=== PATIENT | female | born 1985 | race Caucasian/White ===

== ENCOUNTER 2016-09-05 10:44 | Emergency (ER) | payer BC, OTHER ==
--- NOTE | 2016-09-05 11:09 | ERNOTE ---
Chest Pain/Cardiac HPI Chief Complaint: Chest Pain Time Seen by Provider: 09/05/16 10:57 Source: patient Exam Limitations: no limitations Immunizations: IMMUNIZATION HX History of Influenza Vaccine Yes Allergies/Adverse Reactions: Allergies cefaclor [From Ceclor] Allergy (Verified 06/16/16 09:42) Sulfa (Sulfonamide Antibiotics) Allergy (Verified 06/16/16 09:42) Home Medications: HOME MEDICATIONS Metoprolol Tartrate [Lopressor] 50 mg PO HS 01/28/16 [Last Taken 09/05/16] Multivitamin [One Daily Essential] 1 each PO DAILY 01/28/16 [Last Taken 09/05/16 ] Aspirin [Aspirin Enteric Coated] 81 mg PO DAILY 06/16/16 [Last Taken 09/05/16] Ranitidine HCl [Zantac] 150 mg PO DAILY 09/05/16 [Last Taken 09/05/16] Narrative: pt had sharp chest pain onset last night that lasted about 2 minutes and was exacerbated by movement. She has achy pain mid to upper sternum today that is mild. 27w2d high risk due to mildly dilated aorta Timing: intermittent Severity/Quality: mild Location: central Chest Pain Radiation: no radiation Activities at Onset: activity Modifying Factors - Improves: Present: nothing Modifying Factors - Worsens: Present: position, movement Review of Systems - Review of Systems Constitutional: Absent: recent illness EYE: Present: no symptoms reported ENT: Present: no symptoms reported Respiratory: Absent: shortness of breath Cardiology: Present: See HPI Gastrointestinal/Abdominal: Present: no symptoms reported Genitourinary: Present: discharge, other - constant lower abdominal pressure without contractile changes Musculoskeletal: Present: muscle stiffness - chest Skin: Present: no symptoms reported Neurological: Present: no symptoms reported Endocrine: Present: no symptoms reported Hematologic/Lymphatic: Present: no symptoms reported Psych: Present: no symptoms reported - Patient's Past Medical History Patient History - Medical: UTI'S Patient History - Cardiac/Respiratory: Hypertension Patient History - Cancer: No Hx of Cancer Patient History - Surgical Procedures: D & C Patient History - Other: None - Family History Mother Family History - Medical: Family History - Cardiac/Respiratory: COPD Father Family History - Medical: Renal Failure Family History - Cardiac/Respiratory: Aneurysm, Hypertension Brother Family History - Medical: Family History - Cardiac/Respiratory: Aneurysm - Social History Living Situations: home Psych History: No pertinent hx Smoking Status: Never smoker Have you smoked in the past 12 months: No Alcohol Use: none Drug Use: none - Immunizations History of Influenza Vaccine: Yes Physical Exam - Physical Exam General Appearance: Present: wd/wn, alert, no apparent distress Ears, Nose, Throat: Present: normal ENT inspection Neck: Present: normal inspection, nontender Respiratory: Present: no respiratory distress, normal breath sounds, chest tenderness - right costo-sternal junction of ribs 2&3 Cardiovascular/Chest: Present: regular rate, rhythm, no murmur Extremity Exam: Present: normal inspection, normal range of motion Neurological Exam: Present: alert, oriented, normal mood/affect, no motor/ sensory deficits Skin Exam: Present: normal color, warm/dry Lymphatic Exam: Present: no adenopathy ED Progress - Results and Orders Patient's Lab Results:: I have reviewed the patient's lab results. Results and Orders: Laboratory Tests 09/05/16 09/05/16 09/05/16 11:10 11:10 11:10 WBC 8.6 Hgb 11.7 L Hct 34.6 L Plt Count 153 PT 9.9 INR (Anticoag Therapy) 0.95 PTT ([place]) 26.6 Sodium 139 Potassium 3.9 Chloride 104 Carbon Dioxide 25.2 Anion Gap 13.7 BUN 7 D Creatinine 0.59 Est GFR (Non-Af Amer) 128 D Random Glucose 91 Calcium 9.0 Total Bilirubin 0.2 AST 14 ALT 12 L Alkaline Phosphatase 57 Troponin I Less than 0.017 Total Protein 6.7 Albumin 2.5 L - Vital Signs Patient's Vital Signs:: I have reviewed the patient's vital signs. Vital Signs: Vital Signs 09/05/16 09/05/16 10:50 10:57 Temperature 37.1 C Pulse Rate 92 83 Respiratory 16 12 Rate Blood Pressure 150/102 126/71 O2 Sat by Pulse 100 100 Oximetry - EKG EKG: NSR EKG read: Interp. by me - Progress/Reassessment Chief Complaint: Chest Pain Progress Note-Subjective: 09/05/16 14:52 OB nurse was called to ED. NST was done and was reactive. amnioswab was done and found no evidence of membrane rupture. Departure - Departure Clinical Impression: Costal chondritis Disposition: Home Follow Up Needed Condition: Good Instructions: Costochondritis, [id number] Referrals: Seth Dominguez DO [Primary Care Provider] -
[2016-09-05 11:14] LABS: Hematocrit 34.6 % (37.0-47.0); Hemoglobin 11.7 gm/dL (12.5-16.0); Mean Cell Volume 91.3 fl (78-100); Mean Corpuscular Hemoglobin 30.9 pg (27-31); Mean Corpuscular Hgb Conc 33.8 g/dl (32-36); Mean Platelet Volume 10.2 fl (6.0-9.5); Neutrophil # 6.3 K/mm3 (1.3-6.0); Neutrophil % 73.1 % (42-75.0); Platelet Count 153 K/mm3 (150-450); Red Blood Count 3.79 M/mm3 (4.2-5.4); Red Cell Distribution Width 13.1 % (11.5-14.0); White Blood Count 8.6 K/mm3 (4.0-10.5)
--- OUTSIDE RECORDS SUMMARY | 2016-09-05 11:14 | XMS REPORT | Continuity of Care Document ---
:1985 Author Organization [facility] ([facility]) Address [address] [place] [address] Phone [phone] Care Team Providers Name Role Phone Tammy Blake Primary Care Provider [phone] Source Comments This disclosure is being made pursuant to the Care Everywhere program, applicable federal and state laws, and may not contain all informaitonavailable regarding this patient.[facility] ([facility]) Active Allergies and Adverse Reactions Allergen Noted Date Severity Reactions Comments Cefaclor Angioedema Metformin 10/30/2014 Stomach Pain,Diarrhea Naproxen Sodium 05/25/2016 Rash Pollen 03/22/2012 OTHER hayfever Sulfadoxine Angioedema Current Medications Prescription Sig. Disp. Refills Start End Date Status Date SUPPLY blood Use as directed. 1 Each 0 Active pressure monitor Indications: 3 (SELF-TAKING BLOOD HYPERTENSION PRESSURE) metoPROLol succinate Take 1 tablet (50 90 tablet 3 Active 50 mg XL tablet mg total) by 6 mouth daily. ondansetron 4 mg Take 1 tablet (4 20 tablet 1 Active tablet mg total) by 6 mouth every 8 hours as needed for Nausea/Vomiting. promethazine 12.5 mg Take 1 tablet 20 tablet 1 Active tablet (12.5 mg total) 6 by mouth every 6 hours as needed. Take 1 tablet by Active multivitamin with mouth daily. minerals 28-0.8 mg per tablet BABY ASPIRIN PO Take 1 tablet by Active mouth daily. pseudoephedrine 30 Take 30 mg by Active mg tablet mouth every 4 hours as needed for Congestion. amoxicillin 875 mg Take 875 mg by 08/17/19 Discontinued tablet mouth 2 times 17 daily. Active Problems Problem Noted Date Supervision of high risk in second trimester 06/22/2016 Familial aortic aneurysm 10/30/2014 HTN (hypertension), benign 04/11/2013 Obesity (BMI 35.0-39.9 without comorbidity) 07/21/2011 Rubella equivocal 07/13/2011 Overview: Received MMR 01/2012 Aortic insufficiency; dilated aortic root of 3.1cm in 04/2011, 2.5cm 2011 (normal) in 08/2011, 3.3cm in 12/2011. Seen by Cards on 12/28 and continued on metoprolol. Overview: Early epidural to reduce marked changes in BP secondary to pain. Assisted 2nd stage with vacuum/forceps Pt's father had ruptured aortic aneurysm (survived) tested negative for Marfan's and TAA syndrome. Pt's brother from ruptured thoracic aortic aneurysm at age 18. Repeat echo on 12/28 with aortic root dilation of 3.3cm, <4cm so ok for vaginal delivery per [facility]. Also okay per diet counselor Lilliam Banerjee, but recommended avoiding prolonged/protracted pushing. echo normal at 22 wks, no further f/u needed. Currently Estimated Date of Delivery Comments Yes 12/03/2016 Based on Last Menstrual Period Resolved Problems Problem Noted Date Resolved Date Missed 12/17/2015 05/26/2016 Chronic hypertension in 09/13/2011 12/17/2015 Overview: Growth ultrasound 02/01/12: indicated EFW at 66%. 6-10 mm CEASAR (less than 5th percentile) UA S/D ratio=2.0, heart rate 140 beats per minute. No gross anomalies were noted. Her last growth ul trasound four weeks ago had a normal CEASAR. Continue Metoprolol 25 mg BID Q4 week growth US, next scheduled at 38+5 weeks NST 2/week, one locally and one at [facility] Baseline 24hr protein was 980mg on 06/29/11, baseline labs WNL - see media IOL scheduled at 39+0 on 02/04/12 at 2000, will need to reassess if pt will need cervical ripening , dating by local 7 wk ultrasound not c/w LMP. 07/13/2011 12/17/2015 Overview: Needs MMR PP A positive, antibody screen negative, Rubella equivocal, HIV negative, HBsAg negative, RPR negative, urine culture negative, Pap negative in 08/06, gonorrhea/chlamydia negative, GTT normal. GBS positive. Regarding cefaclor allergy, patient reports taking amoxicillin frequently without adverse reaction. Polycystic kidney disease, autosomal dominant in family. 07/07/20112011 Overview: Renal sono 07/21/11 WNL 24 hr protein 980 mg/24 hr Need to address follow-up of baseline proteinuria with possible renal consult/renal biopsy post- Lumbago 01/27/2008 07/13/2011 Most Recent Encounters Date Type Specialty Providers Description 09/05/2016 Telephone Gynecology Tereso, Chief Comp: Patient Mary Awan MD Concern 08/18/2016 Telephone Pediatric Penny Sanchez, Chief Comp: manager banking Follow-up 08/17/2016 Office Visit Maternal Keyla Sánchez I Dx: Chronic Medicine hypertension Clinic, Hrob affecting Return (Primary Dx) 08/17/2016 Hospital Encounter Pediatric Keith, Dx: Aortic valve Cardiology Pancho Means MD insufficiency, unspecified etiology 08/17/2016 Hospital Encounter Pediatric Keith, Dx: Aortic valve Cardiology Pancho Means MD insufficiency, unspecified etiology 08/03/2016 Telephone Gynecology Tereso, Chief Comp: Other Mary Awan MD 07/21/2016 Telephone Obstetrics Kena Coles, Chief Comp: Discuss Test Results 07/20/2016 Office Visit Maternal Keyla Sánchez I Dx: Supervision of Medicine high-risk Clinic, Hrob (Primary Dx) Return 07/20/2016 Hospital Encounter Obstetrics Brunilda Busch Dx: Supervision of DO high risk in first trimester 07/20/2016 Office Visit Maternal Clinic, Hrob Subj: Appointment Medicine Return Canceled 07/20/2016 Hospital Encounter Obstetrics Subj: Appointment Canceled 07/20/2016 Erroneous Obstetrics Tereso, Chief Comp: Error Encounter Mary Awan MD 07/18/2016 Telephone Maternal Tereso Chief Comp: Other Medicine Mary Awan MD 06/28/2016 Telephone Gynecology Kayla Moss Chief Comp: Medication Question 06/23/2016 Telephone Maternal Kayla Moss, Chief Comp: Discuss Medicine Test Results 06/22/2016 Office Visit Pathology Cris, Dx: Balaji Kelly MD hypertension Lab Services, Pfp affecting 06/22/2016 Office Visit Maternal Nuangchamnong, Dx: Supervision of Medicine MD Leticia high risk Clinic, Hrob in second trimester Return (Primary Dx) 06/16/2016 Telephone Gynecology Kayla Moss, Chief Comp: Rachana CHOW 06/16/2016 Telephone Maternal Kayla Moss, Chief Comp: Rachana Siddiqui MD 06/13/2016 Telephone Maternal Kayla Moss, Chief Comp: Urinary Medicine MD Tract Infection Immunizations Name Dates Previously Given Next Due MMR 02/07/2012 Tdap 03/22/2012 Social History Tobacco Use Types Packs/Day Years Used Date Never Smoker Smokeless Tobacco: Never Used Alcohol Use Drinks/Week oz/Week Comments Yes 2 Glasses of wine 1.0 last drink sept prior to Last Filed Vital Signs Vital Sign Reading Time Taken Blood Pressure 125/69 08/17/2016 3:01 PM [employer] Pulse 101 08/17/2016 3:01 PM [employer]ST[employer] Temperature 37.3 C (99.1 F) 08/17/2016 3:01 PM [employer] INST[employer]ER Respiratory Rate 16 12/18/2015 11:07 AM CDT Height 1.537 m (5' 0.5") 07/20/2016 4:04 PM [employer] INST[employer]ER Weight 96.5 kg (212 lb 11.9 oz) 08/17/2016 3:01 PM [employer] INST[employer]ER Body Mass Index 40.85 08/17/2016 3:01 PM [employer] INST[employer]ER Oxygen Saturation 99% 12/18/2015 11:07 AM CDT Plan of Care Date Type Specialty Providers Description 09/06/2016 Appointment Obstetrics Subj: Upcoming Appt Reminder 09/06/2016 Appointment Maternal Clinic, Hrob Return Dx: Supervision of Medicine normal in second trimester (Primary Dx) 10/21/2016 Appointment Heart and Vascular [place] Banerjee, Subj: Appointment MD Scheduled [address] [place] [address] [phone] (Fax) 10/21/2016 Appointment Heart [facility] [place] Banerjee, Subj: Appointment Scheduled [address] [place] [address] [phone] (Fax) Health Maintenance Due Date Last Done Comments Hepatitis B Vaccine (1 of 3 - Primary Series) 1985 Cervical Cancer Screening 2004 Lipid Disorder Screening 2004 Influenza Vaccine: Seasonal (#1) 01/25/2016 Td Vaccine 03/22/2022 03/22/2012 MMR Vaccine Completed 02/07/2012 Tdap Vaccine Completed 03/22/2012 Results from Last 3 Months ECHO PEDS - ECHOCARDIOGRAM (08/17/2016 1:46 PM) Component Value Range Interpretation Summary Normal cardiac anatomy Normal Doppler assessment of flow Normal biventricular function No effusion. Atria and Atrial Septum Flap of foramen ovale enters the left atrium. Normal left atrial size Normal right atrial size Right to left shunt seen at atrial level. Rhythm 1:1 AV conduction with a heart rate of 161 bpm. Situs, Cardiac Position and Pulmonary Situs solitus. and Systemic Veins One pulmonary veins seen connecting to the left atrium. Levocardia No obstruction to IVC or SVC flow seen draining to the right atrium. Great Vessels and Ventricular-Arterial Normal left ventricular outflow tract. Connections The aortic valve is not seen well in cross section, however it appears thin and mobile. Normal pulmonary valve, and main pulmonary artery. Concordant ventriculoarterial connections. Ascending aortic velocity normal No aortic valve regurgitation. Normal flow velocity in the main pulmonary artery. Atrioventricular Valves and AV Valve The mitral valve is normal. Function The tricuspid valve is normal. Concordant atrioventricular connections. No mitral valve regurgitation. No tricuspid valve regurgitation. Ventricles and Interventricular Septum The right ventricle is normal in size and systolic function. No ventricular septal defect seen in views obtained. The left ventricle is normal in size and systolic function. Aortic Arch/Paten Ductus Normal aortic and ductal arches. Ateriosus/Coronary Arteries Descending aortic velocity normal Attributes Fetus at 24w4d weeks gestation. Cordero . Expected date of delivery 12/03/2016. Fetus in cephalic lie. heart/chest ratio=0.5. Cardiac [place]=42 degrees . Normal flow velocity and pattern in umbilical artery and vein. No hydrops or pericardial effusion seen. Primary ICD-9 Code Suspected Abnormality Ruled Out (Z03.73) 24 weeks gestation of (Z3A.24) Procedures 2D Echo performed as part of this study. PW and CW Doppler peformed as part of this study. Doppler assessment of Color Flow mapping performed as part of this study. Quality Comments Patient's name and date were confirmed. Maternal obesity limiting exam. RVDd 0.53 cm IVSd 0.36 cm LVIDd 0.67 cm LVIDs 0.30 cm LVPWd 0.33 cm IVS/LVPW 1.1 FS 55.6 % LV mass(C)d 2.4 grams AoV sarah diam 0.39 cm PV sarah diam 0.42 cm Reason For Study Evaluate fetus for CHD Client Partner Erin Hernandez Interpreting Physician Pancho Parker MD electronically signed on 2016-08-17 16:05:40.85 URINE CULTURE, ROUTINE AEROBIC (07/20/2016 4:48 PM)Only the most recent of2 resultswithin the time period is included. Component Value Range Quantitative Culture Multiple Organisms present suggesting improperly collected specimen(A) Specimen Culture - Urine, Midstream clean catch Narrative Identification performed by MALDI-TOF mass spectrometry (MS).The performance characteristics of MALDI-TOF MS were determined by the [facility].It has not been cleared orApproved by the FDA. The FDA has determined that such clearance or approval is not necessary.This test is for clinical purposes. It should not be regarded as investigational or for research.The laboratory is certified under the Clinical Laboratory Improvement Amendments of 1988 (CLIA) as qualified to perform high complexity clinical laboratory testing. OB ULTRASOUND (07/20/2016 3:26 PM) Narrative Obstetric Ultrasound Report Detailed Survey Referral from: Dr. Saurabh Chiu , [facility] [place] [address] OB Clinic [facility] PATIENT INFORMATION: Name: JUSTYNA GAMING#: [id number] Age:30 y/oExam Date: 07/20/2016 :1985 Visit #: 4 LMP:02/27/2016Location: Obstetri c Unit # Fetuses: 1 INDICATION:Aortic insufficiency and dilated aortic arch. cHTN. Negative screening. Check growth and anatomy DATING: Assigned GA GA by LMPGA by US (LMP)KAPIL 20 4/7 wks 19 6/7 wks 20 4/7 wks6 BIOMETRY: BPD: 43.9 mm19 2/7 wksHC:168.9 mm 19 4/7 wks(5%) (16%) Femur: 34.3 mm20 6/7 wksAC:151.7 mm 20 3/7 wks(34%) (52%) EFW: 378 gms0 lbs 13 oz (%) Lat Ventricles: 5.3 mm Cisterna Magna: 5.1 mm Nuchal Fold:3.0 mm Nasal Bone: Present-5.2 m Heart Rate: 156 bpmFL/AC:0.23 HL/BPD: 0.72 FL/BPD: 0.78 Humerus:32.0 mm20 10/30 (53%) PRESENTATION/CORD/PLACENTA/FLUID/CERVIX: Presentation: Cephalic Umbilical Cord: 3 Vessel Cord.Normal insertion into the placenta. Placenta: Anterior.There Is No Evidence Of Placenta Previa. Amniotic Fluid: Subjective AF Volume: Normal. Cervix: Overall Length:42mm, Normal ANATOMICAL SURVEY: Normal ------ Lateral Ventricles Cerebellum Cisterna Magna Nuchal Fold Profile Cervical Spine Thoracic Spine Lumbar Spine Sacrum Four Chamber View RVOT LVOT Aortic ArchCardiac [place] Cardiac Position Heart Rate Ductal ArchCardiac Rhythm Ventral Wall Stomach Kidney - LeftKidney - Right Bladder Forearm - Left Forearm - RightLower Leg - Left Lower Leg - RightFoot - Left Foot - Right Suboptimal Palate Nose Lips IVC SVC Diaphragm Hand - LeftHand - Right Abnormal -------- None identified TARGETED CARDIAC: Ductal Arch: Normal IVC: Suboptimal SVC: Suboptimal Cardiac Rhythm:Normal Pericardial Effusion: Absent DRIVER ENGINEER FINDINGS: Ovaries:Left:Normal Right: Normal EFW Summary Table Exam DateFetus #EFW Percentile ------ - 378 % AMNIOTIC FLUID VOLUME: NORMALSubjective AF Volume: Normal. CERVIX: Visualized Overall Length:42 mm Cervical Evaluation: Yes Cervical Approach: Transabdominal COMMENTS: I attest to having personally viewed the images and my comments and impression are as follows: The exam was limited by maternal obesity in . IUP consistent with given KAPIL. Within the limits of ultrasound, no structural anomalies were seen. The nuchal, nasal and humerus measure within the normal limits. The anatomy survey was incomplete due to position and maternal abdominal thickness. Please schedule a follow up visit in 2-4 weeks to complete the anatomy checklist.An order will be required for a follow-up ultrasound. Thank you for allowing our unit to contribute to your patient's care. Gabi Pruett.O. Dr. Brunilda Busch MD ([id number]) Client Partner: Ana Lilia Yepez RDMS, RVT Procedure Note Larry, Incoming Imaging Results - MonJul 25, 2016 4:10 PM [employer] INST[employer]ER Obstetric Ultrasound Report Detailed Survey Referral from: Dr. Saurabh Chiu DO [facility] Department of Obstetrics &[place] [address] [address] [place], [place] OB Clinic IVF/Endocrine PATIENT INFORMATION: Name: JUSTYNA CASTAÑEDA MR#: [id number] Age: 30 y/o Exam Date: 07/20/2016 : 1985 Visit #: 4 LMP: 02/27/2016 Location: Obstetric Unit # Fetuses: 1 INDICATION: Aortic insufficiency and dilated aortic arch. cHTN. Negative screening. Check growth and anatomy DATING: Assigned GA GA by LMP GA by US (LMP) KAPIL 20 09/30 wks 19 11/30 wks 20 7 wks 12/03/16 BIOMETRY: BPD: 43.9 mm 19 2/7 wks HC: 168.9 mm 19 7 wks (5%) (16%) Femur: 34.3 mm 20 7 wks AC: 151.7 mm 20 7 wks(34%) (52%) EFW: 378 gms 0 lbs 13 oz (%) Lat Ventricles: 5.3 mm Cisterna Magna: 5.1 mm Nuchal Fold: 3.0 mm Nasal Bone: Present-5.2m Heart Rate: 156 bpm FL/AC: 0.23 HL/BPD: 0.72 FL/BPD: 0.78 Humerus: 32.0 mm 20 7 (53%) PRESENTATION/CORD/PLACENTA/FLUID/CERVIX: Presentation: Cephalic Umbilical Cord: 3 Vessel Cord. Normal insertion into the placenta. Placenta: Anterior. There Is No Evidence Of Placenta Previa. Amniotic Fluid: Subjective AF Volume: Normal. Cervix: Overall Length: 42mm, Normal ANATOMICAL SURVEY: Normal ------ Lateral Ventricles Cerebellum Cisterna Magna Nuchal Fold Profile Cervical Spine Thoracic Spine Lumbar Spine Sacrum Four Chamber View RVOT LVOT Aortic Arch Cardiac [place] Cardiac Position Heart Rate Ductal Arch Cardiac Rhythm Ventral Wall Stomach Kidney - Left Kidney - Right Bladder Forearm - Left Forearm - Right Lower Leg - Left Lower Leg - Right Foot - Left Foot - Right Suboptimal Palate Nose Lips IVC SVC Diaphragm Hand - Left Hand - Right Abnormal -------- None identified TARGETED CARDIAC: Ductal Arch: Normal IVC: Suboptimal SVC: Suboptimal Cardiac Rhythm: Normal Pericardial Effusion: Absent DRIVER ENGINEER FINDINGS: Ovaries: Left: Normal Right: Normal EFW Summary Table Exam Date Fetus # EFW Percentile --------- ------- ---- 07/20/16 1 378 % AMNIOTIC FLUID VOLUME: NORMAL Subjective AF Volume: Normal. CERVIX: Visualized Overall Length: 42 mm Cervical Evaluation: Yes Cervical Approach: Transabdominal COMMENTS: I attest to having personally viewed the images and my comments and impression are as follows: The exam was limited by maternal obesity in . IUP consistent with given KAPIL. Within the limits of ultrasound, no structural anomalies were seen. The nuchal, nasal and humerus measure within the normal limits. The anatomy survey was incomplete due to position and maternal abdominal thickness. Please schedule a follow up visit in 2-4 weeks to complete the anatomy checklist. An order will be required for a follow-up ultrasound. Thank you for allowing our unit to contribute to your patient's care. Brunilda Busch D.O. Dr. Brunilda Busch MD ([id number]) Client Partner: Ana Lilia Yepez, RDMS, RVT GLUCOSE, 1 HOUR, GLUCOSE TOLERANCE TEST (06/22/2016 2:18 PM) Component Value Range GTT 1 Hour 123Comment: mg/dL Reference range: positive result for evaluation of gestational diabetes mellitus depends on protocol used. 1 Hr Glucose tolerance test using 50 g of glucose Fasting plasma glucose concentration > 95 mg/dL One-hour plasma glucose concentration > 140 mg/dL 3 Hr Glucose tolerance test using 100 g of glucose Fasting plasma glucose concentration > 95 mg/dL One-hour plasma glucose concentration > 180 mg/dL Two-hour plasma glucose concentration > 155 mg/dL Three-hour plasma glucose concentration > 140 mg/dL Reference: ACOG practice bulletin number 137, January 2013, Gestational Diabetes Mellitus Specimen Blood CREATININE (06/22/2016 2:18 PM) Component Value Range Creatinine 0.8Comment: 0.5-1.0 mg/dL Creatinine switched to enzymatic method on 11/02/2010.GFR equation switched to IDMS-traceable MDRD equation on 11/02/2010. Calculated GFR values are not valid in clinical settings where serum creatinine is changing. Calculated GFR 85 >60 mL/min/1.73 m2 Specimen Blood INTEGRATED SECOND SAMPLE SCREEN - [place] MATERNAL SCREENING (06/22/2016 2:18 PM) Component Value Range Egg Provider's Race WHITE Number of Fetuses 1 Insulin Dependent Diabetic Egg No Provider Egg Provider's Family History of NTD No Client Partner tonie garcia Ultrasound Date 2016-05-25 [place] Rump Length 57 mm Nuchal Translucency 1.42 mm Maternal Age at Delivery 30.2 kya First Trimester Lab Number [id number] First Trimester Collection Date 2016-05-25 First Trimester Received Date 2016-05-26 First Trimester Maternal Weight 206.2 lb First Trimester Gestational Age 85 d Second Trimester Lab Number [id number] Second Trimester Collection Date 2016-06-22 Second Trimester Received Date 2016-06-23 Second Trimester Maternal Weight 205.1 lb Second Trimester Gestational Age 113 d NT Multiple of Median 1.02 PAPPA Multiple of Median 1.08 AFP Multiple of Median 0.92 <2.2 UE3 Multiple of Median 0.8 SHRUTI Multiple of Median 0.65 HCG Multiple of Median 0.89 Down Syndrome Risk 1:49381 <=1:150 Age Related Down Syndrome Risk 1:750 Trisomy 18 Risk 1:73723 <=1:100 NTD Interpretation Screen Negative for NTD NTD Recommended Action No further action Down Syndrome Interpretation Screen Negative for Downs Down Syndrome Recommended Action No further action Trisomy 18 Interpretation Screen Negative for Trisomy 18 Trisomy 18 Recommended Action No further actionComment: Screening will detect approximately 85% of fetuses with Down syndrome, 80% of fetuses with Trisomy 18 and 85% of fetuses with open neural tube defects in a cordero .This test does not reliably detect other chromosomal abnormalities.NT measurement greater than or equal to 3.0 mm increases the risk for aneuploidy, heart defects and other congenital abnormalities. Maternal screening has some level of inherent false negative and false positive results and is not a substitute for diagnostic testing.This report is based on the clinical information provided.Missing or incorrect data will result in an inaccurate interpretation.Please review and call [phone] with questions.This test uses a kit designated by the channel process supervisor as, "for research use, not for clinical use."The performance characteristics of this test were validated by the [facility].The FDA has not approved or cleared this test.The results are not intended to be used as the sole means for clinical diagnosis or patient management decisions. Integrated Test Technology is under license from [employer]. Specimen Serum MICROSCOPIC URINALYSIS (06/22/2016 1:53 PM) Component Value Range White Blood Cells, Urine 12(H)Comment: 0-5 /HPF Sample analyzed >2 hours after collection under unknown storage conditions. Optimal results are obtained on samples analyzed within 1-2 hours of collection unless refrigerated. Interpret results accordingly. Red Blood Cells, Urine 6(H) 0-2 /HPF Bacteria, Urine Rare(A) /HPF Squamous Epithelial Cells, Urine 387(H) <=10 /LPF Hyaline Cast, Urine 2 <=10 /LPF Mucous-Urine Many(A) None, Rare Specimen Urine URINALYSIS WITH REFLEX CULTURE (06/22/2016 1:53 PM) Component Value Range Color, Urine Yellow Straw, Pale Yellow, Yellow, Clear, None Clarity, Urine Cloudy(A) Clear pH, Urine 6.0Comment: <9.0 Sample analyzed >2 hours after collection under unknown storage conditions. Optimal results are obtained on samples analyzed within 1-2 hours of collection unless refrigerated. Interpret results accordingly. Spec [place], Urine 1.030(H) 1.000-1.030 Glucose, Urine Negative Negative Blood, Urine Negative Negative Ketones, Urine Trace(A) Negative Protein, Urine 2+(A) Negative Urobilinogen, Urine Normal Normal Bilirubin, Urine Negative Negative Leukocyte Esterase, Urine 2+(A) Negative Nitrite, Urine Negative Negative Specimen Urine URINALYSIS WITH REFLEXED CULTURE AND MICROSCOPIC EXAM (06/22/2016 1:53 PM) Specimen Culture - Urine, Midstream clean catch Narrative The following orders were created for panel order URINALYSIS WITH REFLEXED CULTURE AND MICROSCOPIC EXAM. Procedure Abnormality Status --------- ------ URINALYSIS WITH REFLEX C...[[id number]]AbnormalFinal result MICROSCOPIC URINALYSIS[[id number]] URINE CULTURE, REFLEXED[[id number]]Abnormal Final result Please view results for these tests on the individual orders. URINE CULTURE, REFLEXED (06/22/2016 1:53 PM) Component Value Range Quantitative Culture Multiple Organisms present suggesting improperly collected specimen(A) Specimen Culture - Urine, Midstream clean catch Narrative Identification performed by MALDI-TOF mass spectrometry (MS).The performance characteristics of MALDI-TOF MS were determined by the [facility].It has not been cleared orApproved by the FDA. The FDA has determined that such clearance or approval is not necessary.This test is for clinical purposes. It should not be regarded as investigational or for research.The laboratory is certified under the Clinical Laboratory Improvement Amendments of 1988 (CLIA) as qualified to perform high complexity clinical laboratory testing. PROTEIN-URINE 24 HR (06/21/2016 6:30 AM) Component Value Range Total Volume, Urine 1181 mL Hours Collected 24.0 Hours Total Protein, Urine, Measured 40 mg/dL Total Protein, Urine, Total 0.47(H) 0.10-0.20 g/24Hr Total Protein-Urine, mg/TV 472.40 mg/TV Urine Protein/Creatinine Ratio 0.40(H) <=0.20 Specimen Urine
--- OUTSIDE RECORDS SUMMARY | 2016-09-05 11:14 | XMS REPORT | CCD ---
:1985 Author Name ANA MARIE Address [address] Unavailable [place], [place] [id number] Care Team Providers Name Role Phone MAIRA WISDOM Attending Physician Unavailable Vital Signs Unknown or Not Available. Allergies Unknown or Not Available. Procedures Unknown or Not Available. History of Immunizations Unknown or Not Available. Problems Unknown or Not Available. Results Unknown or Not Available. Active Medications Unknown or Not Available. Medications Administered During Visit Unknown or Not Available. Encounters Encounter Diagnosis Diagnosis Code Start Date Encounter for supervision of normal , unspecified, [id number] 11/25/2015 first trimester Social History Smoking Status Code Start Date End Date Never smoker [id number] Patient Decision Aids Unknown or Not Available. Discharge Instructions You were admitted to [facility] on 11/25/2015 12:47 with a principal diagnosis of Encounter for supervision of normal , unspecified, first trimeste You were discharged from [facility] on 11/25/2015 12:47 Should you have any questions prior to discharge, please contact a member of your healthcare team. If you have left the hospital and have any questions, please contact your primary care physician. Chief Complaint and Reason For Visit Unknown or Not Available. Function Status Unknown or Not Available. Plan of Care Unknown or Not Available. Referral/Transition of Care Unknown or Not Available.
--- OUTSIDE RECORDS SUMMARY | 2016-09-05 11:14 | XMS REPORT | CCD ---
:1985 Author Name ANA MARIE Address [address] [facility] Unavailable [place], [place] [id number] Care Team Providers Name Role Phone MAIRA WISDOM Attending Physician Unavailable Vital Signs Unknown or Not Available. Allergies Unknown or Not Available. Procedures Procedure Code Procedure Type Date HIV 06/[id number] 12/11/2015 History of Immunizations Unknown or Not Available. Problems Unknown or Not Available. Results . PANEL - Collect Date/Time: 12/11/2015 14:55 Test Name Code Test Result Test Units Test Ref Range WBC 6690-2 10.8 K/uL L=3.2 H=10.0 RBC 789-8 4.70 M/uL L=4.00 H=5.20 HEMOGLOBIN 718-7 14.4 g/dL L=12.1 H=15.6 HEMATOCRIT 42.7 % L=35.0 H=47.0 MCV 90.9 fL L=81.0 H=101 MCH 30.6 PG L=26.0 H=38.0 MCHC 33.7 G/DL L=31.0 H=37.0 RDW-SD 40.9 FL L=37.0 H=54.0 RDW-CV 12.6 % L=11.0 H=16.0 PLATELETS 777-3 197 K/UL L=140 H=380 MPV 11.2 FL L=9.0 H=13.0 %GRAN 60.5 % L=0.0 H=75.0 %LYMPH 28.5 % L=0.0 H=50.0 %MONO 9.1 % L=0.0 H=14.0 %EOS 1.6 % L=0.0 H=6.0 %BASO 0.3 % L=0.0 H=1.0 #GRAN 6.51 K/UL L=1.80 H=7.80 #LYMPH 3.06 K/UL L=0.30 H=4.00 #MONO 0.98 K/UL L=0.00 H=0.70 #EOS 0.17 K/UL L=0.00 H=0.40 #BASO 0.03 K/UL L=0.00 H=0.10 MANUAL DIFF NOT INDICATED N/A ABO/RH A POSITIVE N/A ANTIBODY SCRN NEGATIVE N/A NORMAL: NEGATIVE VAGINITIS PANEL - Collect Date/Time: 12/11/2015 15:23 Test Name Code Test Result Test Units Test Ref Range TRICHOMONAS 47896-9 NEGATIVE N/A NORMAL:NEGATIVE NORI NEGATIVE N/A NORMAL:NEGATIVE GARDNERELLA NEGATIVE N/A NORMAL:NEGATIVE .OB ANTIBODY RUBELLA - Collect Date/Time: 12/11/2015 14:55 Test Name Code Test Result Test Units Test Ref Range RUBELLA IMMUNE STATUS 25.5 IU/mL .OB HEPATITIS B SURFACE ANTIGEN - Collect Date/Time: 12/11/2015 14:55 Test Name Code Test Result Test Units Test Ref Range HEPBSAG INDEX Below 0.10 N/A Below 1.00 HEPATITIS B SURFACEANTIGEN NON REACTIVE N/A HIV 1/2 AB - Collect Date/Time: 12/11/2015 14:55 Test Name Code Test Result Test Units Test Ref Range HIV 1/2 AB/AG W/REFLEX NON REACTIVE N/A Active Medications Unknown or Not Available. Medications Administered During Visit Unknown or Not Available. Encounters Encounter Diagnosis Diagnosis Code Start Date Patient currently [id number] 12/11/2015 Social History Smoking Status Code Start Date End Date Never smoker [id number] Patient Decision Aids Unknown or Not Available. Discharge Instructions You were admitted to [facility] on 12/11/2015 14:48 with a principal diagnosis of state, incidental You had the following tests done:.OB ANTIBODY RUBELLA.OB HEPATITIS B SURFACE ANTIGEN. PANELHIV 1/2 ABVAGINITIS PANEL You were discharged from [facility] on 12/11/2015 14:48 Should you have any questions prior to discharge, please contact a member of your healthcare team. If you have left the hospital and have any questions, please contact your primary care physician. Chief Complaint and Reason For Visit Unknown or Not Available. Function Status Unknown or Not Available. Plan of Care Diagnostic Test Pending Plan of Care Pending Diagnostic Test .OB RPR, [LOINC: 81592-8], 12/11/2015 Referral/Transition of Care Unknown or Not Available.
[2016-09-05 11:26] LABS: Prothrombin Time (Patient) 9.9 Seconds (9.4-11.4)
[2016-09-05 11:28] LABS: INR 0.95 INR (0.90-1.10); Partial Thrombolplastin Time 26.6 Seconds (24-32)
[2016-09-05 11:32] LABS: ALT 12 U/L (19-67); AST 14 U/L (0-48); Albumin * 2.5 gm/dl (3.4-5.0); Alkaline Phosphatase * 57 U/L (50-170); Anion Gap 13.7 mmol/L (6.8-13.8); BUN/Creatinine Ratio 11.9 (9.0-21.6); Bilirubin, Total 0.2 mg/dL (0.0-1.1); Blood Urea Nitrogen 7 mg/dL (3-23); Ca. Corrected For Albumin 9.9 mg/dL (8.4-10.2); Carbon Dioxide 25.2 mmol/L (24-32.6); Chloride 104 mmol/L (97-106); Glucose * 91 mg/dL (70-110); Potassium 3.9 mmol/L (3.4-4.6); Sodium 139 mmol/L (132-142); Total Protein 6.7 gm/dL (6.2-8.2); Troponin I Less than 0.017 ng/ml (0.00-0.10)
[2016-09-05 12:06] VITALS: BP 126/69
== END 2016-09-05 12:11 | disposition home or self-care (01) ==
LOC: ER 10:44
DX: M94.0 Chondrocostal junction syndrome [Tietze] (principal); Z3A.27 27 weeks gestation of pregnancy; O09.892 Supervision of other high risk pregnancies, second trimester; I10 Essential (primary) hypertension

== ENCOUNTER 2016-11-22 19:18 | Observation (INO) | payer BC, OTHER ==
[2016-11-22] MEDS ORDERED: RINGERS SOLUTION,LACTATED 1,000 ML IV PRN (19:24)
[2016-11-22 19:39] LABS: Hematocrit 36.2 % (37.0-47.0); Hemoglobin 12.4 gm/dL (12.5-16.0); Mean Cell Volume 91.4 fl (78-100); Mean Corpuscular Hemoglobin 31.3 pg (27-31); Mean Corpuscular Hgb Conc 34.3 g/dl (32-36); Mean Platelet Volume 11.3 fl (6.0-9.5); Neutrophil # 7.1 K/mm3 (1.3-6.0); Platelet Count 146 K/mm3 (150-450); Red Blood Count 3.96 M/mm3 (4.2-5.4); Red Cell Distribution Width 13.5 % (11.5-14.0); White Blood Count 11.3 K/mm3 (4.0-10.5)
[2016-11-22 19:52] LABS: Albumin * 2.3 gm/dl (3.4-5.0); Anion Gap 13.5 mmol/L (6.8-13.8); BUN/Creatinine Ratio 12.2 (9.0-21.6); Bilirubin, Total 0.2 mg/dL (0.0-1.1); Ca. Corrected For Albumin 9.7 mg/dL (8.4-10.2); Calcium * 8.7 mg/dL (7.9-10.9); Carbon Dioxide 23.5 mmol/L (24-32.6); Total Protein 6.4 gm/dL (6.2-8.2)
[2016-11-22 19:54] LABS: Urine Bilirubin Negative (NEGATIVE); Urine Blood 50 /ul (NEGATIVE); Urine Ketone Negative (NEGATIVE); Urine Nitrite Negative (NEGATIVE); Urine Protein 100 mg/dL (NEGATIVE); Urine Specific Gravity 1.025 SP.GR. (1.005-1.010); Urine Urobilinogen Normal (NORMAL)
[2016-11-22 20:18] LABS: Cocaine Ur Negative (NEGATIVE); Urine Barbiturate Negative (NEGATIVE); Urine Benzodiazepines Negative (NEGATIVE); Urine Opiates Negative (NEGATIVE); Urine PCP Negative (NEGATIVE); Urine THC Negative (NEGATIVE)
[2016-11-22 20:19] LABS: Urine Appearance Slightly Cloudy; Urine Color Yellow
[2016-11-22 20:20] LABS: Urine Bacteria 1+; Urine RBC 0-5 /hpf (0-5); Urine WBC TRACE /hpf (0-5)
[2016-11-22 20:20] LABS: INR 0.91 INR (0.90-1.10); Partial Thrombolplastin Time 27.2 Seconds (24-32); Prothrombin Time (Patient) 9.5 Seconds (9.4-11.4)
--- NOTE | 2016-11-22 20:30 | HP ---
Chief Complaint - Chief Complaint Date of Service: 11/22/16 Chief Complaint: chest hurt, headache and contraction History of Present Illness: 31 yo, CF, at 38.3 weeks, EDC 12/03/16, with history of aotic insufficiency and dilated aotic root, chronic hypertension, and morbid obesity ( BMI 43), and care at [facility]. Presents to our hospital with complaints of chest pain, headache, hand tingling and contractions. Patient states she is jovany all day, and had lost her mucus plug with mucous vaginal spotting. She states it is the chest pain and hand tingling that made her come here. She is on metoprolol 50 mg daily, baby aspirin and vitamin. Upon initial evaluations, her blood pressure was found to be very low, 85/43, 69/34 and 73/ 39. Her pulse was in the 92 and 93 with O2 sat at 97-99% room air. heart rate was reassuring at 120 s with accels. She was jovany q2min. Cervix was closed, 50% and -2. Spoke with Dr. Bermudez at [facility] and was told she is scheduled for induction next week at 39 week. Her echo showed EF of 59% on . She denies vaginal bleeding or leaking fluid. - Narrative Narrative: Family history of aortic aneurisym (Father and brother). mother with COPD - Patient's Past Medical History Patient History - Medical: UTI'S Patient History - Cardiac/Respiratory: Hypertension Patient History - Cancer: No Hx of Cancer Patient History - Surgical Procedures: D & C Patient History - Other: None - Family History Mother Family History - Medical: Family History - Cardiac/Respiratory: COPD Father Family History - Medical: Renal Failure Family History - Cardiac/Respiratory: Aneurysm, Hypertension Brother Family History - Medical: Family History - Cardiac/Respiratory: Aneurysm - Social History Living Situations: home Psych History: No pertinent hx Alcohol Use: none Drug Use: none - Immunizations History of Influenza Vaccine: Yes Review Of Systems (GEN) - Review of Systems EENTM: Present: Other - headache Cardiac: Present: Chest Pain Genitourinary: Present: Other - mucos discharge with spotting. Misc: All systems neg except as marked Immunizations: IMMUNIZATION HX History of Influenza Vaccine Yes Allergies/Adverse Reactions: Allergies Allergy/AdvReac Type Severity Reaction Status Date / Time cefaclor [From Ceclor] Allergy Unknown Verified 11/22/16 20:57 Sulfa (Sulfonamide Allergy Unknown Verified 11/22/16 20:57 Antibiotics) Home Medications: HOME MEDICATIONS Metoprolol Tartrate [Lopressor] 50 mg PO HS 01/28/16 [Last Taken 09/05/16] Multivitamin [One Daily Essential] 1 each PO DAILY 01/28/16 [Last Taken 09/05/16 ] Aspirin [Aspirin Enteric Coated] 81 mg PO DAILY 06/16/16 [Last Taken 09/05/16] Ranitidine HCl [Zantac] 150 mg PO DAILY 09/05/16 [Last Taken 09/05/16] Exam - Exam Vital Signs: Vital Signs - Last Taken Temp 37.1 C 09/05/16 10:50 Pulse Resp BP 126/69 09/05/16 12:05 Pulse Ox Constitutional: Present: Alert, Oriented x3, Cooperative Respiratory: Present: lungs clear, normal breath sounds, no respiratory distress , No rales, No wheezing Cardiovascular/Chest: Present: normal peripheral pulses, regular rate, rhythm, systolic murmur Abdomen: Present: soft, nontender, other - gravid /Rectal: Present: Other - cervix: closed, 50% and -2 Extremity: Present: normal range of motion, no calf tenderness, lower extremity edema - 1+ bilaterally Skin Exam: Present: normal color, warm/dry, no cyanosis Diagnostic Studies: bed side u/s: cephalic, no signs of abruption. Assessment/Plan - Narrative Narrative: A: 31 yo, CF, at 38.3 week with chest pain, headache, contractions and low BP in the 70-80/35-45s, aortic insufficiency, dilated aortic root and family history of aortic aneurysm. no abruption on u/s. normal O2 sat at 97-98% room air with reassuring status. patient is currently stable after IV fluid bolus per Internal medicine DR. Egan. Cervix closed. Plan:will transfer to [facility] by air lift due to concerns of cardiopulmonary insufficiency. Spoke with high risk MFM Dr. Ileana Patterson who accepted the transfer. Dileep oLpez MD
--- NOTE | 2016-11-22 20:36 | OR ---
Anesthesia Pre Procedure Eval Date of Service: 11/22/16 Pre Procedure Evaluation: Last Vital Signs Temp 37.1 C 09/05/16 10:50 Pulse Resp BP 126/69 09/05/16 12:05 Pulse Ox Anesthesia Pre Procedure Evaluation Heart Rate:78 Blood Pressure:85/65 Termperature:36.7 Respiratory Rate:20 SaO2:99 DATE: 11/22/2016 TIME: 2024 INDICATIONS: Active labor, labor pain PAST MEDICAL HISTORY: Patient has had a history of aortic dilatation and aortic valve hypertrophy, she was scheduled to be induced in [place] on Monday. She presented to the OB department with contractions at 2 minutes apart and although some of her symptoms resemble that of preeclampsia (blurred vision, tingling fingers) her blood pressure was rather low. This initial assessment was for my own familiarity in case she stays long enough to deliver here. In the meantime Dr. Lopez will investigate the etiology of her low blood pressure and hopefully be able to transfer her to [place]. If she is unable to transfer the original plan was to put early epidural M and assist with delivery in effort to reduce morbidity of decreased cardiac output with pushing at the end stages of labor. As of now with an apparent low blood pressure I am not inclined to administer an epidural unless we discover an etiology for low blood pressure. EXAM: Heart S1-S2 regular with systolic murmur; lungs clear bilaterally ASSESSMENT OF MEDICAL STATUS: The patient's history includes aortic dilatation and valve hypertrophy and has been treated with metoprolol, she is morbidly obese but takes no other medication in no other apparent health issues. Etiology of her hypotension is yet to be determined. PLANNED PROCEDURE: Procedure deferred at this time as I await determination of patient's obstetrical treatment. Home Medications: HOME MEDICATIONS Metoprolol Tartrate [Lopressor] 50 mg PO HS 01/28/16 [Last Taken 09/05/16] Multivitamin [One Daily Essential] 1 each PO DAILY 01/28/16 [Last Taken 09/05/16 ] Aspirin [Aspirin Enteric Coated] 81 mg PO DAILY 06/16/16 [Last Taken 09/05/16] Ranitidine HCl [Zantac] 150 mg PO DAILY 09/05/16 [Last Taken 09/05/16]
[2016-11-22] MEDS ORDERED: NORMAL SALINE 1,000 ML IV PRN (20:44)
[2016-11-22] MEDS ORDERED: ONDANSETRON HCL/PF 2 MG/ML VIAL IV ONE (21:06)
--- NOTE | 2016-11-22 22:41 | DS ---
(1) Hypotension Problem: Acute (2) Aortic insufficiency Problem: Acute (3) Morbid obesity with BMI of 40.0-44.9, adult Problem: Acute (4) High-risk in third trimester Problem: Acute (5) Chest pain Problem: Acute Qualifiers: Chest pain type: unspecified Qualified Code(s): R07.9 - Chest pain, unspecified Description of Stay: 31 yo, CF, at 38.3 weeks with high risk , aortic insufficiency , chronic high blood pressure and morbid obesity, presented with chest pain, headache, hand tingling, contraction and mucus bloody discharge and found to have low blood pressures in 60-80s /35-45s. Her pulse was in the 80-90s with O2 sat in the 97-98% on room air. status was reassuring. Internal medicine was consulted and IV hydration was given. Initial assessment ruled out labor and abruption. Blood pressure improved after iv hydration and stabalized to 135/60. Patient then was transfered to [facility] via air lift due to concerns of cardiopulmonary insufficiency from aortic insufficiency or aortic dissection. Procedures Performed: none Discharge Disposition: [facility] Disposition: [facility] Condition: Fair Discharge Activity: Other - bed rest Discharge Diet: NPO Referrals: Seth Dominguez DO [Primary Care Provider] - Consultation Done:: with internal medicine and MFM at [facility] Complete Home Medications List: Complete Home Medication List: Metoprolol Tartrate [Lopressor] 50 mg PO HS 01/28/16 Multivitamin [One Daily Essential] 1 each PO DAILY 01/28/16 Aspirin [Aspirin Enteric Coated] 81 mg PO DAILY 06/16/16 Ranitidine HCl [Zantac] 150 mg PO DAILY 09/05/16
--- NOTE | 2016-11-23 10:50 | CONS ---
- Reason for consultation (1) Chest pain Date of Service: 11/22/16 (2) Hypotension Date of Service: 11/22/16 HPI - General Date of Service: 11/22/16 Narrative: Patient presented to the ED with complaints of chest pain, headache and paresthesias. She was immediately transferred to the [facility] [place] where she was evaluated by Dr. Lopez. Patient was found to be hypotensive and a stat consult was placed and the patient's case was discussed with Dr. Lopez. Of note, the patient has a history of aortic root dilation. Source: patient, family, RN/MD Exam Limitations: no limitations - History of Present Illness Allergies/Adverse Reactions: Allergies cefaclor [From Ceclor] Allergy (Unknown, Verified 11/22/16 20:57) Sulfa (Sulfonamide Antibiotics) Allergy (Unknown, Verified 11/22/16 20:57) Home Medications: Home Medications Medication Instructions Recorded Last Taken Metoprolol Tartrate [Lopressor] 50 mg PO HS 01/28/16 11/21/16 20:00 Multivitamin [One Daily Essential] 1 each PO DAILY 01/28/16 11/22/16 Aspirin [Aspirin Enteric Coated] 81 mg PO DAILY 06/16/16 11/22/16 Ranitidine HCl [Zantac] 150 mg PO DAILY 09/05/16 09/05/16 - Patient's Past Medical History Patient History - Medical: UTI'S Patient History - Cardiac/Respiratory: Hypertension Patient History - Cancer: No Hx of Cancer Patient History - Surgical Procedures: D & C Patient History - Other: None - Family History Mother Family History - Medical: Family History - Cardiac/Respiratory: COPD Father Family History - Medical: Renal Failure Family History - Cardiac/Respiratory: Aneurysm, Hypertension Brother Family History - Medical: Family History - Cardiac/Respiratory: Aneurysm - Social History Living Situations: home Psych History: No pertinent hx Alcohol Use: none Drug Use: none - Immunizations History of Influenza Vaccine: Yes Procedures ASPIRAT CURET-POST DELIV (01/17/11) Review of Systems - Review of Systems Generalized/Overall Review: Absent: Fever Respiratory: Absent: Shortness of Breath Cardiac: Present: Chest Pain Neurological: Present: Parasthesia, Tingling Misc: All systems neg except as marked Physical Examination - Exam Vital Signs: Vital Signs - Last Taken Temp 37.1 C 09/05/16 10:50 Pulse Resp BP 126/69 09/05/16 12:05 Pulse Ox Constitutional: Present: Alert, Oriented x3, Cooperative, Well developed, Well nourished, Mild distress, Young ENT Exam: Present: moist mucous membranes Respiratory: Present: lungs clear, normal breath sounds, no respiratory distress , no accessory muscle use Cardiovascular/Chest: Present: regular rate, rhythm, no chest tenderness, diastolic murmur, edema - Trace to 1+ edema in bilateral lower extremities Extremity: Present: non-tender, normal inspection, lower extremity edema Skin Exam: Present: normal color - Trace to 1+ pitting edema in bilateral lower extremities, warm/dry, no cyanosis. Absent: mottled, skin rash Neurologic: Present: no motor/sensory deficits, alert, normal mood/affect, oriented x 3 Appearance: Present: appropriate appearance, appropriate insight, neat, no memory impairment Eye contact: Present: cooperative, good eye contact, normal speech Thoughts: Present: normal thought pattern, no apparent hallucination - Results and Findings: Lab/Microbiology results last 24 hrs: Abnormal/Pending Laboratory Last 24 HRS 11/22/16 11/22/16 11/22/16 20:10 19:38 19:38 WBC 11.3 H RBC 3.96 L Hgb 12.4 L Hct 36.2 L MCH 31.3 H Plt Count 146 L MPV 11.3 H Immature Gran % (Auto) 0.60 H Immature Gran # (Auto) 0.07 H Monocytes % 10.0 H Neutrophils # 7.1 H Monocytes # 1.1 H Fibrinogen 435 H Carbon Dioxide 23.5 L ALT 12 L Albumin 2.3 L Urine Protein Urine Blood Ur Leukocyte Esterase Urine Bacteria 11/22/16 19:25 WBC RBC Hgb Hct MCH Plt Count MPV Immature Gran % (Auto) Immature Gran # (Auto) Monocytes % Neutrophils # Monocytes # Fibrinogen Carbon Dioxide ALT Albumin Urine Protein 100 H Urine Blood 50 H Ur Leukocyte Esterase 25 H Urine Bacteria 1+ H - Assessments/Findings (1) Chest pain Diagnosis(s): Given the patient's history of dilation of her aortic root in combination with her presenting symptoms and hypotension, I'm extremely concerned that the patient is having an aortic dissection. I discussed the need for further evaluation with both Dr. Lopez, the patient and her . We could get a CTA of the chest here, however, if there is something critical that is found, we do not have the means to treat her here. Given my extremely high suspicion for an aortic dissection, I recommended that the patient be transferred STAT to the [facility] for further evaluation and management. Also, if we did a CTA this would mean that the patient and her baby would be exposed to radiation. To avoid radiation exposure, the patient could have a MARII completed to evaluate for aortic dissection. Unfortunately, we do not do TEEs here at our facility and thus another reason for the patient to be transferred to the [facility]. Problem: Acute Qualifiers: Chest pain type: unspecified Qualified Code(s): R07.9 - Chest pain, unspecified (2) Hypotension Diagnosis(s): Increase IV access and place at least one 18-gauge IV. Stop IV fluids which are running at 125 mL/h and instead run NS wide open. Check manual blood pressures. Patient treated aggressively with IV fluids with good response and improvement in her blood pressure. Patient alert and oriented and mentating without difficulties and able to protect her own airway. I I discussed with Dr. Lopez that I feel like the patient is stable enough and should be transferred to the [facility] STAT via helicopter for further evaluation and management. Problem: Acute
--- OUTSIDE RECORDS SUMMARY | 2016-11-23 11:07 | XMS REPORT | Continuity of Care Document ---
:1985 Author Organization [facility] ([facility]) Address [address] [place] [address] Phone [phone] Care Team Providers Name Role Phone Tammy Blake Primary Care Provider [phone] Source Comments This disclosure is being made pursuant to the Care Everywhere program, applicable federal and state laws, and may not contain all informaitonavailable regarding this patient.[facility] ([facility]) Active Allergies and Adverse Reactions Allergen Noted Date Severity Reactions Comments Cefaclor Angioedema Metformin 10/30/2014 Stomach Pain,Diarrhea Naproxen Sodium 05/25/2016 Rash Pollen 03/22/2012 OTHER hayfever Sulfadoxine Angioedema Current Medications Prescription Sig. Disp. Refills Start Date End Date Status SUPPLY blood Use as directed. 1 Each 0 04/29/2013 Suspended pressure monitor Indications: (SELF-TAKING BLOOD HYPERTENSION PRESSURE) ondansetron 4 mg Take 1 tablet (4 20 tablet 1 06/22/2016 Suspended tablet mg total) by mouth every 8 hours as needed for Nausea/Vomiting. promethazine 12.5 Take 1 tablet 20 tablet 1 06/22/2016 Suspended mg tablet (12.5 mg total) by mouth every 6 hours as needed. Take 1 tablet by Suspended multivitamin with mouth daily. minerals 28-0.8 mg per tablet BABY ASPIRIN PO Take 81 mg by Suspended mouth daily. acetaminophen 500 Take 1,000 mg by Suspended mg tablet mouth every 8 hours. For headaches metoPROLol Take 1 tablet (50 90 tablet 3 10/21/2016 Suspended succinate 50 mg XL mg total) by mouth tablet daily. Active Problems Problem Noted Date Dissection of thoracic aorta 11/23/2016 Type 1 dissection of ascending aorta 11/23/2016 Morbid obesity 11/23/2016 Supervision of high risk in third trimester 06/22/2016 Familial aortic aneurysm 10/30/2014 HTN (hypertension), benign 04/11/2013 BMI 40.0-44.9, adult 07/21/2011 Rubella equivocal 07/13/2011 Overview: Received MMR 01/2012 Aortic root dilatation 07/07/2011 Resolved Problems Problem Noted Date Resolved Date [...] NST 2/week, one locally and one at [facility] Baseline 24hr protein was 980mg on 06/29/11, [...] Recent Encounters Date Type Specialty Providers Description 11/23/2016 Office Visit Maternal Clinic, Hrob Subj: Appointment Medicine Return Canceled 11/23/2016 Office Visit Gynecology Subj: Appointment Canceled 11/23/2016 Hospital Encounter Heart and Vascular Subj: Appointment Scheduled 11/23/2016 Anesthesia Event General Surgery Jose Osborne, DO 11/23/2016 Surgery General Surgery Joselin Rolon, Ascending aortic DO aneurysm repair 11/23/2016 Hospital Encounter Heart and Vascular Chief Comp: Patient Reported Reason For Visit 11/22/2016 Hospital Encounter General Surgery Liliane Recinos Dx: Aortic root MD Charly dilatation (Primary [place] bates Dx) MD Gonzales Corbin Sharon B, DO 11/22/2016 Telephone General Care Leonie Serna, Chief Comp: Patient Inpatient - Adult RN Concern 11/16/2016 Office Visit Pathology Ivelisse Parikh, Dx: Chronic hypertension Lab Services, Pfp affecting 11/16/2016 Hospital Encounter Obstetrics Brunilda Busch, Dx: Chronic DO hypertension affecting 11/16/2016 Office Visit Maternal Refugio Rodriguez Dx: Chronic Medicine MD Buddy hypertension Clinic, Hrob affecting Return (Primary Dx) 11/16/2016 Office Visit Gynecology Refugio Rodriguez Subj: Upcoming Appt MD Buddy Reminder 11/09/2016 Hospital Encounter Obstetrics Robb Calix Dx: Chronic MD Vira hypertension affecting 11/09/2016 Office Visit Maternal Trini Brown Dx: Supervision of Chen Villafana MD high risk Clinic, Hrob in third trimester Return (Primary Dx) 11/09/2016 Office Visit Gynecology Trini Brown Subj: Upcoming Appt MD Broderick Reminder 11/02/2016 Hospital Encounter Obstetrics Refugio Rodriguez Dx: Chronic MD Buddy hypertension affecting 11/02/2016 Office Visit Gynecology Nuzhat Castro, Subj: Upcoming Appt Reminder 10/26/2016 Hospital Encounter Obstetrics Brunilda Busch, Dx: Chronic DO hypertension affecting 10/26/2016 Office Visit Maternal Keyla Sánchez I, Dx: Chronic Medicine hypertension Clinic, Hrob affecting Return (Primary Dx) 10/26/2016 Office Visit Gynecology Brunilda Busch, Subj: Upcoming Appt Reminder 10/21/2016 Office Visit Gynecology Ileana Patterson Subj: Upcoming Appt MD Buddy Reminder 10/21/2016 Hospital Encounter Obstetrics Ileana Patterson Dx: Chronic MD Buddy hypertension affecting 10/21/2016 Hospital Encounter Heart and Vascular Boston Banerjee Dx: Benign essential MD Isa hypertension Ileana Lazaro antepartum MD Charly 10/21/2016 Office Visit Heart and Vascular [place] Banerjee Dx: Bev Moss MD hypertension (Primary Dx) 10/19/2016 Office Visit Gynecology Subj: Appointment Scheduled 10/19/2016 Telephone Heart and Vascular Jses Omalley Chief Comp: Appointment Info 10/12/2016 Hospital Encounter Obstetrics [facility] Dx: Balaji Goodwin MD hypertension affecting 10/12/2016 Office Visit Maternal Keyla Sánchez I, Dx: Thoracic aortic Medicine aneurysm without Clinic, Hrob rupture (Primary Dx) Return 10/12/2016 Office Visit Gynecology Keyla Sánchez I, Subj: Upcoming Appt MD Reminder 09/29/2016 Telephone Maternal Tereso, Chief Comp: Patient Medicine Mary Awan MD Concern 09/28/2016 Office Visit Maternal Clinic, Hrob Subj: Appointment Medicine Return Canceled 09/06/2016 Office Visit Pathology Default, Other Dx: Supervision of Billiris Mackenzie Deflen normal in Phi Osei second trimester MD Buddy Lab Services, Pfp 09/06/2016 Office Visit Maternal Sea [facility] Dx: Supervision of Medicine MD Buddy normal in Clinic, Hrob second trimester Return (Primary Dx) 09/06/2016 Hospital Encounter Obstetrics Nuangchamnong, Dx: Supervision of MD Leticia high risk in first trimester 09/05/2016 Telephone Gynecology Tereso, Chief Comp: Patient Mary Awan MD Concern Immunizations Name Dates Previously Given Next Due MMR 02/07/2012 Tdap 09/06/2016,03/22/2012 Social History Tobacco Use Types Packs/Day Years Used Date Never Smoker Smokeless Tobacco: Never Used Alcohol Use Drinks/Week oz/Week Comments Yes 2 Glasses of wine 1.0 last drink sept prior to Last Filed Vital Signs Vital Sign Reading Time Taken Blood Pressure 97/32 11/23/2016 12:02 AM CDT Pulse 93 11/16/2016 2:52 PM CDT Temperature 36.9 C (98.4 F) 11/23/2016 1:09 AM CDT Respiratory Rate 20 10/21/2016 10:30 AM CDT Height 1.524 m (5') 11/23/2016 1:09 AM CDT Weight 99.8 kg (220 lb 0.3 oz) 11/23/2016 1:09 AM CDT Body Mass Index 42.97 11/23/2016 1:09 AM CDT Oxygen Saturation 96% 11/23/2016 3:00 AM CDT Plan of Care Date Type Specialty Providers Description 11/26/2016 Hospital Encounter Women's Health Subj: Upcoming Appt Reminder 02/03/2017 Appointment Radiology Subj: Appointment Scheduled 02/03/2017 Appointment Heart and Vascular [place] Banerjee Subj: Appointment MD Isa Scheduled [address] [place] [address] [phone] (Fax) Health Maintenance Due Date Last Done Comments Hepatitis B Vaccine (1 of 3 - Primary 1986 Series) Lipid Disorder Screening 2004 Cervical Cancer Screening 2016 Influenza Vaccine: Seasonal (Season Ended) 2017 Td Vaccine 09/06/2026 09/06/2016, 03/22/2012 MMR Vaccine Completed 02/07/2012 Tdap Vaccine Completed 09/06/2016, 03/22/2012 Procedures from Last 3 Months The patient is currently admitted. The information in this section might not be complete until the patient is discharged. Procedure Name Priority Date/Time Associated Diagnosis Comments NON-OR PROCEDURE Routine 11/23/2016 12:21 AM Thoracic aortic Results for this CDT aneurysm without procedure are in rupture the results section. Results from Last 3 Months PLATELETS DISPENSE FROM BLOOD BANK (11/23/2016 10:31 AM) Component Value Range Blood Coding System [id number] Blood Product Volume 266 Blood Product ABORH O Neg Blood Unit Number [id number] BLOOD DISPENSE STATUS ISS Blood Product Type Platelets Blood Product Code [id number] SECTION (11/23/2016 9:23 AM) Joanie Gaytan MD 11/23/20169:23 AM SECTION Procedure Date: 11/23/16 Surgical Service: Obstetrics Location: [facility] Main OR Room 27 Attending Staff: Liliane Recinos MD Resident Surgeon: Joanie Dobson MD Anesthesia: general Pre-operative Diagnosis: 1. IUP at 38w4d 2. Known aortic root dilation and insufficiency 3. aortic dissection Operation/Procedure: 1. primary low transverse section 2. Bilateral salpingectomy 3. Aortic dissection repair (see separate procedure note) Post-operative Diagnosis: Same as above s/p uncomplicated procedure Indications: Justyna Castañeda is a 31 y.o. at 38w4d with known aortic root dilation and aortic insufficiency with a 3.8 cm ascending aortic aneurysm who presented with acute-onset neurologic symptoms, chest pain, and back pain. She was noted to have low blood pressures with widened pulse pressure, and imaging was consistent with an aortic dissection. Decision was made to proceed with emergent delivery by obstetrics and aortic dissection repair by cardiothoracic surgery. Findings: 1. female weighing 3115g with APGARs of 5 and 8 at one and five minutes, respectively 2. Cord blood gases of 7.22 (arterial) and 7.19 (venous) 3. Normal uterus, tubes, and ovaries bilaterally Complications: None Description of Operation/Procedure: The risks, benefits, complications, treatment options, and expected outcomes were discussed with the patient. The patient concurred with the proposed plan, giving informed consent. The site of surgery properly noted/marked. The patient was taken to [facility] Operating Room #27, identified as Justyna Castañeda and the procedure verified as Delivery as well as bilateral salpingectomy. In addition to obstetrics' procedure, an aortic dissection repair was planned with CT surgery. A Time Out was held and the above information confirmed. The patient received clindamycin and gentamicin prior to delivery. The patient was draped and prepped in the usual sterile manner. After induction of general anesthesia, a vertical midline incision was made and carried down through the subcutaneous tissue to the fascia. The fascia was scored and extended the length of the incision. The peritoneum was identified and entered bluntly. Peritoneal incision was extended longitudinally. The utero-vesical peritoneal reflection was incised transversely and the bladder flap was bluntly freed from the lower uterine segment. A low transverse uterine incision was made. Delivered from cephalic presentation was a female infant with weight and APGARs as above. After the umbilical cord was clamped and cut cord blood was obtained for evaluation. The placenta was removed intact and appeared normal. The uterine outline, tubes and ovaries appeared normal. A Bakri balloon was placed in the uterus and threaded down through the cervix. The uterine incision was closed with running locked sutures of 0 Vicryl. A second imbricating layer was closed with running suture of 0 Vicryl. Hemostasis was achieved with cautery and 0 Vicryl figure of 8 sutures. There was some uterine atony, so 250 mcg of IM hemabate was given with improvement in tone. The LigaSure device was then used to cauterize and remove bilateral fallopian tubes. Hemostasis was noted on bilateral adnexa. Surgicel was placed over the hysterotomy and lower uterine segment at the side of the bladder flap creation for further hemostasis. The fascia was then reapproximated with a running suture of 0 Loop PDS. The subcutaneous tissue was irrigated with warm, sterile saline and hemostasis was obtained with cautery. The subcutaneous tissue was re-approximated with 0 Vicryl pop off sutures. The skin was reapproximated with clementina. No sterile dressing was placed, as CT surgery then took over the case. After evaluation of the vagina following surgery, the Bakri balloon was noted to be at the perineum. A new Bakri balloon was placed vaginally, and 220 cc of NS was inserted into the balloon. Instrument, sponge, and needle counts were correct prior the abdominal closure and at the conclusion of the case. Estimated Blood Loss: 1000 ml Fluids: 750 ml crystalloid Urine output: 35 ml Specimens: 1. Cord segment 2. Cord gases, as above 3. Placenta (sent to freezer) 4. Bilateral fallopian tubes Anatomic Pathology Results: pending at time of dictation Teaching Statement Dr. Recinos was present for the entire procedure. Joanie Dobson MD Obstetrical Delivery Note Admission Date: 11/22/2016 /Para: EDC: Estimated Date of Delivery: 12/03/16 Gestational Age: 38w4d Delivery Type: Low Transverse Primary Indications of : Maternal complications Presentation: Vertex Delivery Date: 11/23/20164:58 AM Delivering Clinician: LILIANE RECINOS Delivery Providers: JOANIE DOBSON; Anesthesia Method: IV Narcotic, General Tubal Ligation: Yes Complications: Other - See Note Rupture of Membranes (ROM) Date: 11/23/20164:58 AM Rupture Type: AROM Fluid Color: Clear Induction: Spontaneous Augmentation: None Labor & Delivery Complications: None EstimatedBlood Loss (ml): 1000 Episiotomy: None Type of Lacerations: None Antibiotics Prior to Delivery: prophylaxis: clindamycin and gentamicin Gender: Female Placenta Date/Time: 11/23/20164:59 AM Placenta Appearance: Intact Vessels: 3 Vessels Umbilical Cord: No abnormalities Gases Sent: Yes Weight (kg): 3.115 1 minute: 5 5 minutes: 8 Living Status: Yes disposition: nursery FIBRINOGEN (11/23/2016 7:42 AM)Only the most recent of3 resultswithin the time period is included. Component Value Range Fibrinogen 397 180-400 mg/dL Specimen Blood CBC (COMPLETE BLOOD COUNT) (11/23/2016 7:42 AM)Only the most recent of5 resultswithin the time period is included. Component Value Range WBC Count 15.1(H) 3.7-10.5 K/MM3 RBC Count 2.63(L) 4.00-5.20 M/MM3 Hemoglobin 8.0(L) 11.9-15.5 g/dL Hematocrit 25(L) 35-47 % MCV (Mean Corpuscular Volume) 94 82-99 FL MCH (Mean Corpuscular Hemoglobin) 30 25-35 PG MCHC (Mean Corpuscular Hemoglobin Concentration) 32 32-36 % Platelet Count 92(L) 150-400 K/MM3 MPV (Mean Platelet Volume) 11.8 9.4-12.3 FL RBC Dist Width-STD 46.4(H) 36.4-46.3 FL RBC Distrib Width 13.7 9.0-14.5 % Nucleated RBC 0 /100 WBC Specimen Whole Blood HEPARINASE THROMBOELASTOGRAPH (11/23/2016 7:29 AM) Component Value Range Hep Initial Clot Formation 7.6 5.0-10.0 mins Hep Kinetics 1.3 1.0-3.0 mins Hep Angle 71.1 53.0-72.0 Degrees Hep Maximum Amplitude 63.4 50.0-70.0 mm Hep LY30 0.0 0.0-8.0 % Hep Coagulation Index -0.1 -3.0-3.0 Hep Clot Strength G 8.7 4.5-11.0 Kd/cm2 Specimen Blood VENOUS BLOOD GAS - CORD BLOOD ([facility]) (11/23/2016 5:04 AM) Component Value Range pH, Venous, Cord Blood 7.19 pCO2, Venous, Core Blood 76 torr pO2, Venous, Cord Blood 21 torr Base Excess, Venous, Cord Blood -2.5 mEq/L Bicarbonate, Calculated, Venous, Cord Blood 28 mEq/L Total CO2, Venous, Cord Blood 30 mEq/L Temperature, Venous, Cord Blood 37.0 Degrees C Specimen Blood, umbilical cord ARTERIAL BLOOD GAS -CORD BLOOD ([facility]) (11/23/2016 5:04 AM) Component Value Range pH, Arterial, Cord Blood 7.22 pCO2, Arterial, Cord Blood 64 torr pO2, Arterial, Cord Blood 36 torr Base Excess, Arterial, Cord Blood -4 mEq/L Bicarbonate, Calculated, Arterial, Cord Blood 25 mEq/L Total CO2, Arterial, Cord Blood 27 mEq/L Temperature, Arterial, Cord Blood 37.0 Degrees C Specimen Blood, umbilical cord PT/INR (PROTHROMBIN TIME/INR) VENOUS (11/23/2016 3:47 AM)Only the most recent of2 resultswithin the time period is included. Component Value Range PT (Prothrombin Time) 10 9-12 secs INR 0.9 <4.0 Specimen Blood PTT (PARTIAL THROMBOPLASTIN TIME) (11/23/2016 3:47 AM)Only the most recent of2 resultswithin the time period is included. Component Value Range PTT 24 22-31 secs Specimen Blood GLUCOSE ([facility]) (11/23/2016 3:47 AM) Component Value Range Glucose, Whole Blood 111(H) 65-99 mg/dL Specimen Whole Blood CHLORIDE ([facility]) (11/23/2016 3:47 AM) Component Value Range Chloride, Whole Blood 108(H) 95-107 mEq/L Specimen Whole Blood POTASSIUM ([facility]) (11/23/2016 3:47 AM) Component Value Range Potassium, Whole Blood 4.0Comment: 3.5-5.0 mEq/L Sample run on whole blood.Hemolysis is not measured. Specimen Whole Blood SODIUM ([facility]) (11/23/2016 3:47 AM) Component Value Range Sodium, Whole Blood 137 135-145 mEq/L Specimen Whole Blood LACTIC ACID, WHOLE BLOOD ([facility]) (11/23/2016 3:47 AM) Component Value Range Lactic Acid, Whole Blood 1.3Comment: 0.5-2.0 mEq/L Glycolate, the principle toxic metabolite of ethylene glycol, can cause artifactual elevation of measured lactate. Specimen Whole Blood HEMOGLOBIN& CALCULATED HEMATOCRIT - ([facility]) (11/23/2016 3: 47 AM) Component Value Range Hemoglobin - CCL 12.4 11.9-15.5 g/dL Hematocrit (Calc) - CCL 38 35-47 % Specimen Whole Blood CALCIUM, IONIZED ([facility]) (11/23/2016 3:47 AM) Component Value Range Ionized Calcium 4.7 3.8-5.2 mg/dL Specimen Whole Blood ARTERIAL BLOOD GAS ([facility]) (11/23/2016 3:47 AM) Component Value Range pH, Arterial 7.35 7.35-7.45 pCO2, Arterial 38 35-45 torr pO2, Arterial 154(H) 80-90 torr Base Excess, Arterial -5(L) -2-2 mEq/L Bicarbonate, Arterial 21(L) 22-26 mEq/L Total CO2, Arterial 22(L) 24-32 mEq/L Temperature, Arterial 37.0 Degrees C Anion Gap 8 <17 mEq/L Specimen Whole Blood PLASMA DISPENSE FROM BLOOD BANK (11/23/2016 3:12 AM) Component Value Range Blood Coding System [id number] Blood Product Volume 259 Blood Product ABORH A Pos Blood Unit Number [id number] BLOOD DISPENSE STATUS ISS Blood Product Type FFP Blood Product Code [id number] Blood Coding System [id number] Blood Product Volume 320 Blood Product ABORH A Pos Blood Unit Number [id number] BLOOD DISPENSE STATUS ISS Blood Product Type FFP Blood Product Code U5867P25 Blood Coding System [id number] Blood Product Volume 301 Blood Product ABORH A Neg Blood Unit Number [id number] BLOOD DISPENSE STATUS ISS Blood Product Type FFP Blood Product Code P6223X34 Blood Coding System IIXW709 Blood Product Volume 315 Blood Product ABORH A Pos Blood Unit Number [id number] BLOOD DISPENSE STATUS ISS Blood Product Type FFP Blood Product Code Z4779A96 Blood Coding System QGRI572 Blood Product Volume 321 Blood Product ABORH A Pos Blood Unit Number [id number] BLOOD DISPENSE STATUS ISS Blood Product Type FFP Blood Product Code K6416Z82 Blood Coding System YVSV294 Blood Product Volume 265 Blood Product ABORH A Pos Blood Unit Number [id number] BLOOD DISPENSE STATUS ISS Blood Product Type FFP Blood Product Code N4025W71 Blood Coding System SQWH337 Blood Product Volume 207 Blood Product ABORH A Neg Blood Unit Number [id number] BLOOD DISPENSE STATUS ISS Blood Product Type FFP Blood Product Code U0501S01 Blood Coding System NJZS631 Blood Product Volume 301 Blood Product ABORH A Pos Blood Unit Number [id number] BLOOD DISPENSE STATUS ISS Blood Product Type FFP Blood Product Code [id number] RED BLOOD CELLS DISPENSE FROM BLOOD BANK (11/23/2016 3:01 AM)Only the most recent of8 resultswithin the time period is included. Component Value Range Blood Coding System KZYX243 Blood Product Volume 325 Blood Product ABORH A Pos Blood Unit Number [id number] BLOOD DISPENSE STATUS ISS Blood Product Type Red Blood Cells Blood Product Code [id number] ECG - EKG 12 LEAD (11/23/2016 1:38 AM) Component Value Range ECG SEVERITY - NORMAL ECG - VENT. RATE 71 bpm RR 845 ms P-R INTERVAL 176 ms QRSD INTERVAL 88 ms QT INTERVAL 436 ms QTC INTERVAL 474 ms P AXIS 40 degrees QRS AXIS -15 degrees T WAVE AXIS 31 degrees REPORT SINUS RHYTHM No significant change Interpreting Physician: BHARATH GARSIA MD CT ANGIO CHEST, ABDOMEN& PELVIS W/WO ([id number], [id number]) (11/23/2016 1:05 AM) Impressions Impression: 1. Type A aortic dissection, the dissection flap first originates distal to the root of the aorta, not involving the coronary arteries, which are appearing patent. The dissection flap appears to be fenestrated. The dissection flap is seen in the arch, extending or protruding into the origins of the left subclavian artery, innominate and the left common carotid artery. The branch vessels distally appear well opacified and patent. Distally it continues into the abdominal aorta at least to the level of the left renal artery. The kidneys remain well perfused. The branches of the abdominal aorta do not appear involved with the dissection flap. The distal caudal extent of the dissection is not visualized due to contrast bolus timing. Please correlate with physical exam/Dopplers for involvement of the lower extremity arterial supply. 3. Aneurysmal aortic root causing compression and severe narrowing of the SVC. 4. No pericardial effusion or hemopericardium or pleural effusion. 5. Interval increased Left ventricular hypertrophy. 6. Gravid uterus with a single fetus in cephalic presentation. Findings were discussed in person with Dr. Bruce ([id number]) from Cardiothoracic surgery as well as Drs. Dobson ([id number]) and Aidan ([id number]) from Obstetrics. Addendum by staff Dr. Angulo: I was contacted by the on-call resident at 0115 hours. I confirmed the diagnosis of ascending aortic aneurysm with type A aortic dissection, extending into the region of the arch branch vessels. We discussed the compression on the SVC from the aneurysmal ascending aorta and extensive left ventricle hypertrophy as well, which was communicated to the team as above. This final report is in agreement with the critical and emergent preliminary findings reported by the cath lab radiology technician refinery operator polymerization plant. Narrative Procedure: CT ANGIO CHEST, ABDOMEN & PELVIS W/WO ([id number], [id number]) Clinical Indication:Prior history of thoracic aortic aneurysm, now with chest pain and labile blood pressures. Concern for dissection. Patient is 38 weeks . Technique: CT of the chest, abdomen, and pelvis with intravenous contrast. Images obtained through the chest in the arterial phase. Comparison: 11/07/2014 Findings: Supraclavicular, axillary, mediastinal, hilar: Unremarkable. Cardiovascular: Type A aortic dissection involving the ascending aorta, beginning at the level of the aortic root, immediately distal to the origin of RCA and left main coronary artery. The coronaries do appear to remain patent. This dissection flap is fenestrated and terminates shortly thereafter. A second dissection flap is visualized in the aortic arch and involves at least the origin of the left subclavian, located immediately beneath the origin left common carotid artery and partially extending into the the innominate artery. Dissection continues through the entire length of the descending thoracic aorta and into the abdominal aorta.. The proximal aorta is aneurysmal, measuring up to 4 cm causing severe narrowing of the SVC. No pericardial effusion or hemopericardium. There is interval increased left ventricular hypertrophy. Abdomen: Limited evaluation of the abdominal aorta due to contrast timing. The dissection flap is shown to continue past the celiac axis, the SMA origin, and finally the left renal artery (image [id number]), after which point it is no longer conspicuous. The kidneys perfuse normally bilaterally. Normal hepatic and splenic perfusion. Stable hepatic cysts. Visualized bowel is nondistended. No large volume free fluid in the abdomen. Gravid uterus. Lungs, airways, pleura: No pleural effusions or pneumothoraces. No focal airspace disease. Chest wall, musculoskeletal: Unremarkable. Lines and tubes: None. Procedure Note Larry, Incoming Imaging Results - MonNovember 23, 2016 8:57 AM CDT Procedure: CT ANGIO CHEST, ABDOMEN & PELVIS W/WO ([id number], [id number]) Clinical Indication: Prior history of thoracic aortic aneurysm, now with chest pain and labile blood pressures. Concern for dissection. Patient is 38 weeks . Technique: CT of the chest, abdomen, and pelvis with intravenous contrast. Images obtained through the chest in the arterial phase. Comparison: 11/07/2014 Findings: Supraclavicular, axillary, mediastinal, hilar: Unremarkable. Cardiovascular: Type A aortic dissection involving the ascending aorta, beginning at the level of the aortic root, immediately distal to the origin of RCA and left main coronary artery. The coronaries do appear to remain patent. This dissection flap is fenestrated and terminates shortly thereafter. A second dissection flap is visualized in the aortic arch and involves at least the origin of the left subclavian, located immediately beneath the origin left common carotid artery and partially extending into the the innominate artery. Dissection continues through the entire length of the descending thoracic aorta and into the abdominal aorta.. The proximal aorta is aneurysmal, measuring up to 4 cm causing severe narrowing of the SVC. No pericardial effusion or hemopericardium. There is interval increased left ventricular hypertrophy. Abdomen: Limited evaluation of the abdominal aorta due to contrast timing. The dissection flap is shown to continue past the celiac axis, the SMA origin, and finally the left renal artery (image [id number]), after which point it is no longer conspicuous. The kidneys perfuse normally bilaterally. Normal hepatic and splenic perfusion. Stable hepatic cysts. Visualized bowel is nondistended. No large volume free fluid in the abdomen. Gravid uterus. Lungs, airways, pleura: No pleural effusions or pneumothoraces. No focal airspace disease. Chest wall, musculoskeletal: Unremarkable. Lines and tubes: None. IMPRESSION Impression: 1. Type A aortic dissection, the dissection flap first originates distal to the root of the aorta, not involving the coronary arteries, which are appearing patent. The dissection flap appears to be fenestrated. The dissection flap is seen in the arch, extending or protruding into the origins of the left subclavian artery, innominate and the left common carotid artery. The branch vessels distally appear well opacified and patent. Distally it continues into the abdominal aorta at least to the level of the left renal artery. The kidneys remain well perfused. The branches of the abdominal aorta do not appear involved with the dissection flap. The distal caudal extent of the dissection is not visualized due to contrast bolus timing. Please correlate with physical exam/Dopplers for involvement of the lower extremity arterial supply. 3. Aneurysmal aortic root causing compression and severe narrowing of the SVC. 4. No pericardial effusion or hemopericardium or pleural effusion. 5. Interval increased Left ventricular hypertrophy. 6. Gravid uterus with a single fetus in cephalic presentation. Findings were discussed in person with Dr. Bruce ([id number]) from Cardiothoracic surgery as well as Drs. Dobson ([id number]) and Aidan ([id number]) from Obstetrics. Addendum by staff Dr. Angulo: I was contacted by the on-call resident at 0115 hours. I confirmed the diagnosis of ascending aortic aneurysm with type A aortic dissection, extending into the region of the arch branch vessels. We discussed the compression on the SVC from the aneurysmal ascending aorta and extensive left ventricle hypertrophy as well, which was communicated to the team as above. This final report is in agreement with the critical and emergent preliminary findings reported by the cath lab radiology technician refinery operator polymerization plant. 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 1% Lidocaine 1 mL was injected subcutaneously. Arterial pulse was palpated and needle was inserted with good, pulsatile flow. Wire was threaded through the needle. Needle was retracted and catheter was placed over the wire into the vessel. The wire was removed and the catheter was connected to a flushed arterial line set-up. Pulsatile wave-form was confirmed. Catheter was secured with 2.0 silk to the skin. Dressing was applied. Complications:The patient did tolerate the procedure well and no complications were noted. Estimated Blood Loss: <5 ml Teaching Statement: Dr. Colmenares was readily available for the entire procedure Kim Crain MD EXTRA RED TUBE (11/23/2016 12:05 AM) Component Value Range Extra Red Tube Store Specimen Blood TYPE AND SCREEN (BLOOD TYPE(ABORH) AND RBC ANTIBODY SCREEN) (11/22/2016 11:58 PM ) Component Value Range ABORH A Positive Specimen Expiration Date 2016-11-25 Antibody Screen Negative Specimen Blood ECHO ADULT : AFTERHOURS ECHOCARDIOGRAM, TRANSTHORACIC (TTP) (11/22/2016 11:16 PM ) Component Value Range Interpretation Summary TRANSTHORACIC ECHOCARDIOGRAM Limited after hours study. Normal left ventricular systolic function - unchanged compared with previous echo.LV Ejection Fraction=55-60% (based on visual estimate). Moderate aortic insufficiency by doppler, increased compared to previous echo. The ascending aorta is dilated, similar to previous echo. The aortic Sinus(es) of Valsalva are moderately dilated. Large dissection flap in the aortic root, prolapsing through the aortic valve. Entry and exit points not adequately visualized. Dissection flap also noted in the descending aorta on the para sternal long axis images. THIS IS A NEW FINDING COMPARED TO PRIOR STUDY. Findings discussed with Dr. Albaro Dia at the time of interpretation. Left Ventricle (LV) *'Enlarged LV size with normal LV systolic function' ( see text for details) LV diastolic dimension of 5.7 cm Normal LV wall thickness. Normal left ventricular systolic function - unchanged compared with previous echo LV Ejection Fraction=55-60% (based on visual estimate). Normal left ventricular wall motion Right Ventricle (RV) Visualization of the RV chamber is limited due to shadowing artifact Right ventricular function cannot be assessed due to poor image quality. Left and Right Atria (LA, RA) Normal LA chamber size. Normal right atrial size. Mitral Valve (MV) Normal mitral valve morphology and leaflet mobility Trace mitral regurgitation by color Doppler. Tricuspid Valve (TV) Visualization of the Tricuspid Valve is limited Aortic Valve (AoV) Trileaflet AoV without calcification or restricted leaflet mobility Moderate aortic insufficiency by doppler AI increased compared to previous echo 10/21/16 Pulmonic Valve (PV) Pulmonic valve is not visualized Aorta and Pulmonary Artery (Ao, PA) The ascending aorta is dilated The ascending aorta measures 3.9 cmcm The Sinus of Valsalva measures 4.3cm The aortic Sinus(es) of Valsalva are moderately dilated. Large dissection flap in the aortic root, prolapsing through the aortic valve. Entry and exit points not adequately visualized. Dissection flap also noted in the descending aorta on the para sternal long axis images. Pericardium/Pleura Trivial pericardial effusion. Procedures Limited Doppler ([id number]) I personally viewed the echocardiogram and approve the above interpretation Inf. Vena Cava (IVC) / Pulm. Veins IVC not visualized Technical Comments Unable to move patient - Imaging performed in supine position Echo image quality: good Primary ICD-9 Code Aortic valve disorders (424.1) Low Range of LVEF 55 High Range of LVEF 60 Laboratory Helper Maravilla,Rinku Interpreting Physician Sissy Iraheta electronically signed on 2016-11-23 09:44:07.513 NT-PROBNP (11/22/2016 11:06 PM) Component Value Range NT-ProBNP 70Comment: 0-178 pg/mL Reference ranges in adults reflect 95th percentiles for NT-pro-BNP levels in patients without congestive heart failure (CHF). Pediatric reference ranges for patients 18 years and younger are from Pilo et al. Pediatr Cardiol 30:3-8, 2008. Age Reference Range (pg/mL) Pediatric (boys and girls): 0-30 days:263 - 6500 1 month-11 months: 37 - 1000 12 months-35 months: 39 -675 3 years to 6 years:23 -327 7 years to 14 years: 10 -242 15 years to 18 years: 6 -207 Adult Males: 19-44 years: 0 -93 45-54 years: 0 - 138 55-64 years: 0 - 177 65-74 years: 0 - 229 75 years or older: 0 - 852 Adult Females: 19-44 years: 0 - 178 45-54 years: 0 - 192 55-64 years: 0 - 226 65-74 years: 0 - 353 75 years or older: 0 - 624 For adult chronic CHF patients according to [place] [employer] (NYHA) Functional Class for NT-proBNP levels in pg/mL: [id number] Mean percentile percentile Class I: [id number] Class II:[id number] Class III: [id number] Class IV:[id number] Among patients with dyspnea, NT-proBNP is highly sensitive for the detection of acute CHF. In addition, a NT-proBNP < 300 pg/mL effectively rules out acute CHF, with 99% negative predictive value. Elevations in NT-proBNP levels may be observed in states other than left ventricular congestive failure including: acute coronary syndromes, right heart strain/failure (including pulmonary embolism an d cor pulmonale), critical illness, and renal failure. Falsely low NT-proBNP in CHF patients may be observed in increased body mass index. Specimen Blood COMPREHENSIVE METABOLIC PANEL (CMP) (11/22/2016 11:06 PM) Component Value Range Sodium 136 135-145 mEq/L Potassium 3.8 3.5-5.0 mEq/L Chloride 101 95-107 mEq/L CO2 23 22-29 mEq/L BUN 7(L) 10-20 mg/dL Creatinine 0.7Comment: 0.5-1.0 mg/dL Creatinine switched to enzymatic method on 11/02/2010.GFR equation switched to IDMS-traceable MDRD equation on 11/02/2010. Calculated GFR values are not valid in clinical settings where serum creatinine is changing. Glucose 97Comment: 65-99 mg/dL The Expert Committee on the Diagnosis and Classification of Diabetes has defined impaired fasting glucose as greater than or equal to 100 mg/dL but less than 126 mg/dL.(Diabetes Care 28 (Suppl 1)S41,2005) Calcium 8.5 8.5-10.5 mg/dL Total Protein 6.2 6.0-8.0 g/dL Albumin 3.1(L) 3.4-4.8 g/dL AST 24Comment: 0-32 U/L Adult reference ranges updated on 05/21/13 at 830am ALP 106(H) 35-104 U/L Bilirubin Total 0.2 <=1.2 mg/dL ALT 8Comment: 0-33 U/L The upper limit of normal for alanine aminotransferase (ALT) reference ranges for adults is controversial with some authorities recommending limit as low as 30 U/L for males and 19 U/L for females. Th ere is increased incidence of subclinical liver disease (e.g., early steatohepatitis) in patients with ALT values in the range of 31-41 U/L for males and 20-33 U/L for females. ALT values should alway s be interpreted in conjunction with clinical history, physical examination findings, and, if applicable, data from other diagnostic tests. Anion Gap 12 <17 mEq/L Calculated GFR >90 >60 mL/min/1.73 m2 Specimen Blood TROPONIN T (11/22/2016 11:06 PM) Component Value Range Troponin-T <0.03 <=0.10 ng/mL Specimen Blood CREATININE (11/16/2016 4:00 PM) Component Value Range Creatinine 0.6Comment: 0.5-1.0 mg/dL Creatinine switched to enzymatic method on 11/02/2010.GFR equation switched to IDMS-traceable MDRD equation on 11/02/2010. Calculated GFR values are not valid in clinical settings where serum creatinine is changing. Calculated GFR >90 >60 mL/min/1.73 m2 Specimen Blood ALANINE AMINOTRANSFERASE (11/16/2016 4:00 PM) Component Value Range ALT 9Comment: 0-33 U/L The upper limit of normal for alanine aminotransferase (ALT) reference ranges for adults is controversial with some authorities recommending limit as low as 30 U/L for males and 19 U/L for females. Th ere is increased incidence of subclinical liver disease (e.g., early steatohepatitis) in patients with ALT values in the range of 31-41 U/L for males and 20-33 U/L for females. ALT values should alway s be interpreted in conjunction with clinical history, physical examination findings, and, if applicable, data from other diagnostic tests. Specimen Blood ASPARTATE AMINOTRANSFERASE (11/16/2016 4:00 PM) Component Value Range AST 17Comment: 0-32 U/L Adult reference ranges updated on 05/21/13 at 830am Specimen Blood CREATININE-URINE, RANDOM (11/16/2016 3:48 PM) Component Value Range Creatinine, Urine, Random 136.0 mg/dL Specimen Urine PROTEIN-URINE,RANDOM (11/16/2016 3:48 PM) Component Value Range Total Protein, Urine, Random 78 mg/dL Protein/Creatinine Ratio 0.57(H) <=0.20 Specimen Urine OB ULTRASOUND (11/16/2016 2:52 PM)Only the most recent of7 resultswithin the time period is included. Narrative Obstetric Ultrasound Report Testing Referral from: Dr. NICOLE HEATH [facility] UROGYNECOLOGY Department of Obstetrics & Gynecology [address] [place], [place] [id number] OB Clinic IVF/E ndocrine PATIENT INFORMATION: Name: JUSTYNA GAMING#: [id number] Age:31 y/oExam Date: 11/16/2016 :1985 Visit #: [id number] LMP:02/27/2016Location: Obstetri c Unit # Fetuses: 1 INDICATION:CEASAR only. Patient with CHTN and morbid obesity. DATING: Assigned GA GA by LMP(LMP) KAPIL 37 4/7 wks 37 4/7 wks6 PRESENTATION/CORD/PLACENTA/CERVIX: Presentation: Cephalic Placenta: Anterior.There Is No Evidence Of Placenta Previa. AMNIOTIC FLUID VOLUME: NORMALTotal CEASAR: 97 mm.Subjective AF Volume: Normal. Maximum Vertical Pocket:52 mm COMMENTS: I attest to having personally viewed the images and my comments and impression are as follows: The exam was limited due to the late gestational age and maternal obesity. The exam was limited to fluid and heart rate. Appropriate amniotic fluid. Patient was sent to [facility]. Thank you for the opportunity to participate in your patient's care. Dr. Keyla Sánchez MD ([id number]) Laboratory Helper: Dunia Whitaker RDMS, RVT Procedure Note Larry, Incoming Imaging Results - MonNovember 16, 2016 3:38 PM CDT Obstetric Ultrasound Report Testing Referral from: Dr. NICOLE HEATH [facility] UROGYNECOLOGY Department of Obstetrics &Gynecology [address] Work[address] [place], [id number] OB Clinic IVF/Endocrine PATIENT INFORMATION: Name: JUSTYNA CASTAÑEDA MR#: [id number] Age: 31 y/o Exam Date: 11/16/2016 : 1985 Visit #: 11 LMP: 02/27/2016 Location: Obstetric Unit # Fetuses: 1 INDICATION: CEASAR only. Patient with CHTN and morbid obesity. DATING: Assigned GA GA by LMP (LMP) KAPIL 37 4/7 wks 37 4/7 wks 12/03/16 PRESENTATION/CORD/PLACENTA/CERVIX: Presentation: Cephalic Placenta: Anterior. There Is No Evidence Of Placenta Previa. AMNIOTIC FLUID VOLUME: NORMAL Total CEASAR: 97 mm. Subjective AF Volume: Normal. Maximum Vertical Pocket: 52 mm COMMENTS: I attest to having personally viewed the images and my comments and impression are as follows: The exam was limited due to the late gestational age and maternal obesity. The exam was limited to fluid and heart rate. Appropriate amniotic fluid. Patient was sent to [facility]. Thank you for the opportunity to participate in your patient's care. Dr. Keyla Sánchez MD ([id number]) Laboratory Helper: Dunia Whitaker RDMS, МАРИНА [employer] B STREPTOCOCCUS PCR (11/09/2016 1:49 PM) Component Value Range GRPBPCR Negative Negative Specimen Vaginal/Rectal Narrative Test methodology:Nucleic acid amplification; illumigene Assay ([employer]) The performance characteristics of this test were determined by the [facility] Microbiology and Molecular Pathology Laboratory.It has not been cleared or approved by the U.S. Food and DrugAdministration (FDA). The FDA has determined that such clearance or approval is not necessary.This test is for clinical purposes.It should not be regarded as investigational or for research. The laboratory is certified under the Clinical Laboratory Improvement Amendments of 1988 (CLIA) as qualified to perform high complexity clinical laboratory testing. ECHO ADULT - ECHOCARDIOGRAM, TRANSTHORACIC (10/21/2016 12:04 PM) Component Value Range Interpretation Summary TRANSTHORACIC ECHOCARDIOGRAM Normal left ventricular systolic function. LV Ejection Fraction=59% (based on Biplane Method of Discs). Mildly enlarged left ventricle. No regional wall motion abnormalities noted. Mild to moderate aortic insufficiency by doppler. The aortic Sinus(es) of Valsalva are moderately dilated and measures 4.2-4.3cm The ascending aorta measures 3.6-3.8cm, borderline dilated Patient Height (cm) 152.4 cm Patient Weight (kg) 101.2 kg Systolic Pressure (mmHg) 143 mmHg Diastolic Pressure (mmHg) 76 mmHg BSA (meters^2) 2.0 m^2 Left Ventricle (LV) Mildly enlarged left ventricle. Normal LV wall thickness. Normal left ventricular systolic function. LV Ejection Fraction=59% (based on Biplane Method of Discs). No regional wall motion abnormalities noted. Right Ventricle (RV) Normal right ventricular size. Normal right ventricular systolic function. Tricuspid annular plane systolic excursion is normal, measuring 18 mm; which suggests normal RV function.(Normal excursion is 17 mm or greater) Left and Right Atria (LA, RA) Normal LA size based on volume measurements. LA ESV index=25 ml/m2. Normal right atrial size. Mitral Valve (MV) Normal mitral valve leaflet morphology Trace to mild mitral regurgitation based on 'color and spectral Doppler'. Tricuspid Valve (TV) The TV leaflets appear thin and do not appear to be restricted. Trace Tricuspid regurgitation RV/RA peak instantaneous systolic gradient=18mmHg (spectral Doppler). Doppler tracings across the Tricuspid Valve are suboptimal.This may result in an underestimate of the RV/RA systolic pressure Aortic Valve (AoV) The aortic valve structure is probably trileaflet - not all coronary cusps are visualized. Mild to moderate aortic insufficiency by doppler. No hemodynamically significant valvular aortic stenosis by doppler Pulmonic Valve (PV) Visualization of the Pulmonic Valve is limited Probably normal pulmonic valve Mild pulmonic valve insufficiency by doppler. Aorta and Pulmonary Artery (Ao, PA) The aortic Sinus(es) of Valsalva are moderately dilated. The Sinus of Valsalva measures 4.2-4.3cm The ascending aorta measures 3.6-3.8cm The pulmonary artery is normal size. Pericardium/Pleura There is no pericardial effusion. Procedures Complete 2D with Doppler, Color Flow and image documentation ( [id number]) I personally viewed the echocardiogram and approve the above interpretation Inf. Vena Cava (IVC) / Pulm. Veins The IVC size is normal (< 2.1 cm). Technical Comments Exam performed by Alex Guerrero under the supervision of Halie Herr. Primary ICD-9 Code Aortic aneurysm, thoracic (without mention of rupture) ( 441.2) Dilated aortic root. IVSd 0.86 cm LVIDd 5.6 cm LVIDs 3.4 cm LVPWd 0.88 cm IVS/LVPW 0.98 Ao root diam 4.1 cm Ao root area 13.3 cm^2 LA dimension 3.7 cm asc Aorta Diam 4.1 cm LA/Ao 0.91 LVOT diam 2.3 cm LVOT area 4.3 cm^2 LVAd ap4 36.8 cm^2 EF(MOD-sp4) 56.9 % AI dec slope 269.8 cm/sec^2 AI P1/2t 456.9 msec Low Range of LVEF 59 High Range of LVEF 59 Reason For Study AI; dilated aortic root; currently (approx 34 weeks gestation) - compare to previous echo Laboratory Helper Halie Herr Interpreting Physician Ileana Lazaro MD electronically signed on 2016-10-21 13:55:22.027 GLUCOSE, 1 HOUR, GLUCOSE TOLERANCE TEST (09/06/2016 2:11 PM) Component Value Range GTT 1 Hour 97Comment: mg/dL Reference range: positive result for evaluation [...] January 2013, Gestational Diabetes Mellitus Specimen Blood RBC ANTIBODY SCREEN (09/06/2016 2:11 PM) Component Value Range Antibody Screen Negative Specimen Blood ABORH (09/06/2016 2:11 PM) Component Value Range ABORH A Positive Specimen Expiration Date 2016-09-09 Specimen Blood
--- OUTSIDE RECORDS SUMMARY | 2016-11-23 11:07 | XMS REPORT | Continuity of Care Document ---
:1985 Author Organization [facility] ([place]) Address [address] [place] [address] Phone [phone] Care Team Providers Name Role Phone Tammy Blake Primary Care Provider [phone] Source Comments This disclosure is being made pursuant to the Care Everywhere program, applicable federal and state laws, and may not contain all informaitonavailable regarding this patient.[facility] ([place]) Active Allergies and Adverse Reactions Allergen Noted [...] NST 2/week, one locally and one at [place] Baseline 24hr protein was 980mg on 06/29/11, [...] hypertension affecting 10/26/2016 Office Visit Maternal Keyla áSnchez I, Dx: Chronic Medicine hypertension Clinic, Hrob [...] Appointment Scheduled 10/19/2016 Telephone Heart and Vascular Jess Omalley Chief Comp: Appointment Info 10/12/2016 Hospital [...] Appointment MD Isa Scheduled [address] [place] [address] [phone] (Fax) Health Maintenance Due Date Last Done [...] AM) Component Value Range Blood Coding System [id number] Blood Product Volume 266 Blood Product ABORH O Neg Blood Unit Number [id number] BLOOD DISPENSE STATUS ISS Blood Product Type Platelets Blood Product Code [id number] SECTION (11/23/2016 9:23 AM) Joanie Gaytan MD 11/23/20169:23 AM SECTION Procedure Date: 11/23/16 Surgical Service: Obstetrics Location: [facility] Main OR Room 27 Attending Staff: Liliane [...] properly noted/marked. The patient was taken to [facility] Operating Room #27, identified as Justyna Castañeda [...] AM) Component Value Range Blood Coding System QFSA044 Blood Product Volume 259 Blood Product ABORH A Pos Blood Unit Number [id number] BLOOD DISPENSE STATUS ISS Blood Product Type FFP Blood Product Code N6605W52 Blood Coding System WTCX470 Blood Product Volume 320 Blood Product ABORH A Pos Blood Unit Number [id number] BLOOD DISPENSE STATUS ISS Blood Product Type FFP Blood Product Code A6129P56 Blood Coding System NXYS368 Blood Product Volume 301 Blood Product ABORH A Neg Blood Unit Number [id number] BLOOD DISPENSE STATUS ISS Blood Product Type FFP Blood Product Code M9330B71 Blood Coding System WRAQ083 Blood Product Volume 315 Blood Product ABORH A Pos Blood Unit Number [id number] BLOOD DISPENSE STATUS ISS Blood Product Type FFP Blood Product Code X8319V57 Blood Coding System NIRD399 Blood Product Volume 321 Blood Product ABORH A Pos Blood Unit Number [id number] BLOOD DISPENSE STATUS ISS Blood Product Type FFP Blood Product Code P9099Q74 Blood Coding System VIOK191 Blood Product Volume 265 Blood Product ABORH A Pos Blood Unit Number [id number] BLOOD DISPENSE STATUS ISS Blood Product Type FFP Blood Product Code X5854E95 Blood Coding System KKSS515 Blood Product Volume 207 Blood Product ABORH A Neg Blood Unit Number [id number] BLOOD DISPENSE STATUS ISS Blood Product Type FFP Blood Product Code Z6582V83 Blood Coding System IGFB850 Blood Product Volume 301 Blood Product ABORH A Pos Blood Unit Number [id number] BLOOD DISPENSE STATUS ISS Blood Product Type FFP Blood Product Code O0369M68 RED BLOOD CELLS DISPENSE FROM BLOOD BANK (11/23/2016 3:01 AM)Only the most recent of8 resultswithin the time period is included. Component Value Range Blood Coding System MCOI258 Blood Product Volume 325 Blood Product ABORH A Pos Blood Unit Number [id number] BLOOD DISPENSE STATUS ISS Blood Product Type Red Blood Cells Blood Product Code G9906D28 ECG - EKG 12 LEAD (11/23/2016 1:38 [...] MD CT ANGIO CHEST, ABDOMEN& PELVIS W/WO ([id number], 86828) (11/23/2016 1:05 AM) Impressions Impression: 1. Type [...] were discussed in person with Dr. Bruce (2010) from Cardiothoracic surgery as well as Drs. Dobson ([id number]) and Aidan (8885) from Obstetrics. Addendum by staff Dr. Angulo: [...] and emergent preliminary findings reported by the certified prosthetist vice president montessori preschool teacher. Narrative Procedure: CT ANGIO CHEST, ABDOMEN & PELVIS W/WO (94158, 71783) Clinical Indication:Prior history of thoracic aortic aneurysm, [...] CT ANGIO CHEST, ABDOMEN & PELVIS W/WO (38391, 57954) Clinical Indication: Prior history of thoracic aortic [...] were discussed in person with Dr. Bruce ([id number]) from Cardiothoracic surgery as well as Drs. Dobson (5384) and Aidan (7947) from Obstetrics. Addendum by staff Dr. Angulo: [...] and emergent preliminary findings reported by the certified prosthetist vice president montessori preschool teacher. NON-OR PROCEDURE (11/23/2016 12:21 AM) Kim Pack MD 11/23/2016 12:21 AM Arterial Line Placement Procedure Date: 11/23/2016 Service: OB director voice Staff: Kemar Colmenares Resident/Fellow: Kim Crain MD [...] Pericardium/Pleura Trivial pericardial effusion. Procedures Limited Doppler ([id number]) I personally viewed the echocardiogram and approve the above interpretation Inf. Vena Cava (IVC) / Pulm. Veins IVC not visualized Technical Comments Unable to move patient - Imaging performed in supine position Echo image quality: good Primary ICD-9 Code Aortic valve disorders (424.1) Low Range of LVEF 55 High Range of LVEF 60 Serologist Maravilla,Rinku Interpreting Physician Sissy Iraheta electronically signed [...] For adult chronic CHF patients according to [employer] ([place]) Functional Class for NT-proBNP levels in pg/mL: 1xz92lu Mean percentile percentile Class I: [id number] Class II:[id number] Class III: [id number] 09976 Class IV:[id number] 62266 Among patients with dyspnea, NT-proBNP is highly [...] Report Testing Referral from: Dr. NICOLE HEATH [facility] UROGYNECOLOGY Department of Obstetrics & Gynecology [address] [place], [place] [phone] OB Clinic IVF/E ndocrine PATIENT INFORMATION: Name: JUSTYNA GAMING#: [id number] Age:31 y/oExam Date: 11/16/2016 :1985 Visit #: [...] Appropriate amniotic fluid. Patient was sent to [facility]. Thank you for the opportunity to participate in your patient's care. Dr. Keyla Sánchez MD ([id number]) Serologist: Dunia Whitaker RDMS, RVT Procedure Note Larry, Incoming Imaging Results - MonNovember 16, 2016 3:38 PM CDT Obstetric Ultrasound Report Testing Referral from: Dr. NICOLE HEATH [facility] I[facility] UROGYNECOLOGY Department of Obstetrics &Gynecology [address] [place], [id number] OB Clinic IVF/Endocrine PATIENT INFORMATION: Name: JUSTYNA CASTAÑEDA MR#: [id number] Age: 31 y/o Exam Date: 11/16/2016 : [...] Appropriate amniotic fluid. Patient was sent to [facility]. Thank you for the opportunity to participate in your patient's care. Dr. Keyla Sánchez MD ([id number]) Serologist: Duina Whitaker RDMS, [employer] STREPTOCOCCUS PCR (11/09/2016 1:49 PM) Component Value Range GRPBPCR Negative Negative Specimen Vaginal/Rectal Narrative Test methodology:Nucleic acid amplification; illumigene Assay (Spazzles) The performance characteristics of this test were determined by the [facility] Microbiology and Molecular Pathology [...] Doppler, Color Flow and image documentation ( [id number]) I personally viewed the echocardiogram and approve [...] weeks gestation) - compare to previous echo Serologist Halie Herr Interpreting Physician Ileana Lazaro MD [...]
== END 2016-11-22 21:25 | disposition short-term general hospital (02) ==
LOC: OBCLINIC 19:18 → INTOOBSV 19:31 → OB 19:31
PROVIDERS: ADMIT Obstetrics & Gynecology; ATTEND Obstetrics & Gynecology
DX: O09.893 Supervision of other high risk pregnancies, third trimester (principal); I95.9 Hypotension, unspecified; O16.3 Unspecified maternal hypertension, third trimester; Z3A.38 38 weeks gestation of pregnancy; I71.01 Dissection of thoracic aorta; E66.01 Morbid (severe) obesity due to excess calories; Z68.41 Body mass index [BMI] 40.0-44.9, adult
CPT/HCPCS: 36415; 59025; 71010; 76815; 80053; 80307; 81001; 85025; 85384; 85610; 85730; 93005; 96360; 96361; G0378; J2405